=== PATIENT | female | born 1950 | race Caucasian/White ===

== ENCOUNTER 2023-11-07 14:45 | Outpatient (AMB) | payer MEDICARE, SELFPAY ==
[2023-11-07 14:55] VITALS: PULSE 72; O2SAT 94; BMI 45.6
--- NOTE | 2023-11-07 14:55 | A.OFFVIS_ITS ---
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 The patient is a 73-year-old woman presenting with cough. The cough has been chronic for her. Is been going on for more than several years. Typically nonproductive in nature. Moderate severity. At this point is been concerning to the patient and also her family. 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 She had been evaluated by ENT. They had recommended surgery going or semi-invasive interve ntions but she opted not to. She denies any choking episodes. In addition to that, the patient did undergo a chest x-ray back in 09/07/2023 which I personally reviewed without any acute disease. She also underwent pulmonary function studies at [facility]. It appears that she did have some saw tooth pattern the expiratory limb of the flow volume loop likely from redundant tissue or fasciculations from the vocal cord issue. At this point will try to further investigate the different etiologies for the cough. She does have multiple potential triggers. She has the vocal cord issue which could result in micro aspirations and pharyngeal laryngeal penetration. In addition to that she is a PET level. She has multiple pets in the house including multiple parakeets. She has had. He is most of her life. The patient also takes blood pressure medications including KAI inhibitor which may be also contributing to the cough as well. Clinical the patient although she has bothered by the cough does not want to take any medications for. Therefore will do additional testing at this time and then come up with a treatment plan afterwards. If the patient has any worsening symptoms she can not was call and we can prescribe her additional medications. [facility] Medical History (Updated 11/10/23 @ 22:29 by Sahil Donahue MD) Vocal cord palsy Chronic allergic rhinitis Allergies Chronic cough Social History (Updated 11/07/23 @ 15:04 by ANTONELLA Ruff) Patient Tobacco Use Status: Never used Tobacco Review of Systems Const Denies headache(s) Eyes Reports no additional complaints ENT Reports change in voice, Denies headache(s), Reports nasal congestion and Reports nasal discharge Card Denies chest pain Resp Denies chest congestion, Reports cough and Denies wheezing GI Denies no additional complaints Musc Reports no additional complaints Skin/Breast Denies rash Neuro Denies headache(s) Haile/Lymph Denies lymphadenopathy Aller/Immun Denies wheezing Physical Exam Vital Signs: Last Vital Signs Pulse 72 11/07/23 14:55 Pulse Ox 94 11/07/23 14:55 Oxygen Delivery Method Room Air 11/07/23 14:55 BMI result Body Mass Index 45.6 Const General: comfortable HEENT Head: Yes normocephalic Neck Neck: Yes supple Chest Chest palpation & inspection: normal inspection of the chest Resp Effort & Inspection: normal respiratory effort Auscultation: diminished lung sounds Cardio Heart sounds: S1 normal heart sound present and S2 normal heart sound present GI Palpation (GI): Soft to palpation Skin General skin exam: no rashes or lesions noted Extrem General: Yes no clubbing, cyanosis or edema Assessment & Plan Assessment & Plan (1) Chronic cough: Code(s): R05.3 - Chronic cough Category: Medical (2) Allergies: Code(s): T78.40XA - Allergy, unspecified, initial encounter Category: Medical Qualifiers: Encounter type: initial encounter Qualified Code(s): T78.40XA - Allergy, unspecified, initial encounter (3) Vocal cord palsy: Code(s): J38.00 - Paralysis of vocal cords and larynx, unspecified Category: Medical (4) Chronic allergic rhinitis: Code(s): J30.9 - Allergic rhinitis, unspecified Category: Medical Plan Bloodwork/allergy testing Overnight oximetry barium swallow consider changing KAI inhibitor to ARB F/U 2 months Orders: Orders Immunoglobulin E 11/07/23 J30.9 - Allergic rhinitis, unspecified, J38.00 - Paralysis of vocal cords and larynx, unspecified, R05.3 - Chronic cough, T78.40XA - Allergy, unspecified, initial encounter Resp Allergy Profile Region I 11/07/23 J30.9 - Allergic rhinitis, unspecified, J38.00 - Paralysis of vocal cords and larynx, unspecified, R05.3 - Chronic cough, R91.1 - Solitary pulmonary nodule, T78.40XA - Allergy, unspecified, initial encounter Immunoglobulins,IgG IgA IgM 06/20/24 J30.9 - Allergic rhinitis, unspecified, J38.00 - Paralysis of vocal cords and larynx, unspecified, R05.3 - Chronic cough, T78.40XA - Allergy, unspecified, initial encounter Complete Blood Count Auto Diff 11/07/23 J30.9 - Allergic rhinitis, unspecified, J38.00 - Paralysis of vocal cords and larynx, unspecified, R05.3 - Chronic cough, T78.40XA - Allergy, unspecified, initial encounter Overnight Pulse Oximetry 11/07/23 R05.3 - Chronic cough FL barium swallow 11/07/23 K21.9 - Gastro-esophageal reflux disease without esophagitis, R05.3 - Chronic cough Hypersensitive Pneumonitis Prf 11/07/23 R05.3 - Chronic cough, R91.8 - Other nonspecific abnormal finding of lung field, T78.40XA - Allergy, unspecified, initial encounter Coding Level of Care Code New Pt Level 4 (92359) Diagnoses Chronic cough R05.3 Allergy, initial encounter T78.40XA Encounter type: initial encounter Vocal cord palsy J38.00 Chronic allergic rhinitis J30.9 Time Spent (min) 40
== END 2023-11-07 15:33 | disposition home or self-care (01) ==
PROVIDERS: PCP Internal Medicine; Visit Provider Hospitalist
DX: R05.3 Chronic cough (principal); T78.40XA Allergy, unspecified, initial encounter; J38.00 Paralysis of vocal cords and larynx, unspecified; J30.9 Allergic rhinitis, unspecified
CPT/HCPCS: 99204

== ENCOUNTER → 2023-11-07 14:45 | Outpatient (BNVA) | payer MEDICARE, SELFPAY | PROVIDERS: PCP Internal Medicine; Visit Provider Hospitalist | DX: R05.3 Chronic cough (principal); J38.00 Paralysis of vocal cords and larynx, unspecified; J30.9 Allergic rhinitis, unspecified; T78.40XA Allergy, unspecified, initial encounter | CPT/HCPCS: 99202 ==

== ENCOUNTER 2024-01-23 07:49 | Outpatient (REF) | payer MEDICARE, SELFPAY ==
--- NOTE | ~2024-01-23 | FL_ITS ---
EXAMINATION: XR FLUOROSCOPY UPPER GI WITH AIR CLINICAL INFORMATION: Reflux . Cough. COMPARISON: None TECHNIQUE: Fluoroscopic air contrast upper GI examination was performed utilizing standard techniques with thin and thick barium and effervescent granules. Numerous spot images were obtained. FINDINGS: Lateral cine images of the oropharynx and hypopharynx demonstrate normal swallow mechanism with normal epiglottic inversion and soft palate elevation. No tracheal penetration, glottic or subglottic aspiration identified. No nasopharyngeal reflux present. A tiny Zenker's diverticulum is present.. There is mild cricopharyngeal achalasia. Dual and single contrast images of the esophagus demonstrate a mildly patulous esophagus. No evidence of stricture, mass, or ulcerations identified. Esophageal peristalsis is moderately disorganized. A small type I hiatal hernia is present. A moderate amount gastroesophageal reflux is seen up to the thoracic inlet. Dual contrast and single contrast images of the stomach demonstrated a normal contour. Evaluation of the gastric mucosa is limited due to poor coating of the stomach. No obvious masses or ulcerations are seen. Contrast freely passed into the gastric antrum and duodenal bulb without delay. Single and air-contrast images of the duodenal bulb demonstrate no abnormality. The duodenal sweep has a normal appearance, course, and mucosal fold appearance. The imaged proximal jejunum has a normal fold pattern and caliber. FLUOROSCOPY TIME: 4 minutes 5 seconds Number of Spot Images: 8 Number of Cine: 14 DOSE AREA PRODUCT: 3224 uGy-m2 (microgray-meter squared) FL/FL barium swallow with air IMPRESSION: 1. Tiny Zenker's diverticulum. 2. Mild cricopharyngeal achalasia. 3. Mildly patulous esophagus with moderately disorganized peristalsis consistent with esophageal motility. 4. Small type I hiatal hernia with moderate gastroesophageal reflux. 5. Limited evaluation of the gastric mucosa due to poor coating of the stomach. This procedure was performed by Tyron Narvaez PA-C, and supervised by Dr. Ellison Electronically signed by: Brannon Ellison MD 01/23/2024 04:16 PM EDT
== END 2024-01-23 07:50 | disposition home or self-care (01) ==
LOC: HO.XRAY 07:49
PROVIDERS: PCP Internal Medicine; Visit Provider Hospitalist
DX: K21.9 Gastro-esophageal reflux disease without esophagitis (principal); R05.3 Chronic cough
CPT/HCPCS: 74221

== ENCOUNTER → 2024-01-23 07:50 | Outpatient (BNV) | payer MEDICARE, SELFPAY | PROVIDERS: PCP Internal Medicine; Visit Provider Radiology Diagnostic Radiology | DX: K21.9 Gastro-esophageal reflux disease without esophagitis (principal) | CPT/HCPCS: 74246 ==

== ENCOUNTER 2024-01-28 09:32 | Outpatient (REF) | payer MEDICARE, SELFPAY ==
[2024-01-28 10:43] LABS: MANUAL DIFF FLAG NO
[2024-01-28 10:54] LABS: Basophils Percent Auto 0.4 % (0-2); Eosinophils Absolute Auto 0.2 X10*3/uL (0.0-0.4); Eosinophils Percent Auto 2.6 % (0-4); Hematocrit 39.6 % (37.0-47.0); Hemoglobin 13.2 g/dl (12.0-16.0); Imm Gran Abs Auto 0.03 X10*3/uL (0.00-0.03); Imm Gran Pct Auto 0.4 % (0.0-0.4); Lymphocytes Absolute Auto 2.1 X10*3/uL (1.2-4.9); Lymphocytes Percent Auto 27.1 % (20-40); Mean Corpuscular HGB Conc 33.3 g/dl (31.0-35.0); Mean Corpuscular Hemoglobin 31.2 pg (27.0-33.0); Mean Corpuscular Volume 93.6 fL (80.0-98.0); Mean Platelet Volume 10.2 fL (9.4-12.3); Monocytes Absolute Auto 0.4 X10*3/uL (0.1-1.2); Monocytes Percent Auto 5.7 % (2-11); Neutrophils Absolute Auto 4.9 x10*3/uL (2.0-8.3); Neutrophils Percent Auto 63.8 % (45-73); Platelet Count 223 X10*3/uL (160-400); Red Blood Count 4.23 X10*6/uL (4.20-5.50); Red Cell Distribution Width 14.4 % (11.0-16.0); White Blood Count 7.7 X10*3/uL (4.8-10.8)
[2024-01-29 08:53] LABS: IgA 141 mg/dL (70-320); IgG 986 mg/dL (600-1540); IgM 51 mg/dL (50-300)
[2024-01-30 22:19] LABS: Class Alternaria alternata 0; Class Aspergillus fumigatus 0; Class Bermuda Grass 0; Class Birch 0; Class Cat Dander 0; Class Cladosporium herbarum 0; Class Cockroach 0; Class Common Ragweed 0; Class Cottonwood 0; Class Derm. pterony 0; Class Dermatophagoides farinae 0; Class Dog Dander 0; Class Elm 0; Class Maple Box Elder 0; Class Mountain Cedar 0; Class Mouse Urine Protein 0; Class Mugwort 0; Class Oak 0; Class Penicillium crysogenum 0; Class Rough Pigweed 0; Class Sheep Sorrel 0; Class Sycamore 0; Class Timothy Grass 0; Class Walnut Tree 0; Class White Ash 0; Class White Mulberry 0; D001 IgE D pteronyssinus <0.10 kU/L; D002 - IgE D farinae <0.10 kU/L; E001 - IgE Cat Dander <0.10 kU/L; E005 - IgE Dog Dander <0.10 kU/L; E072-IgE Mouse Urine <0.10 kU/L; G002 IgE Bermuda Grass <0.10 kU/L; G006 - IgE Timothy Grass <0.10 kU/L; I006-IgE Cockroach, German <0.10 kU/L; Immunoglobulin E 36 kU/L (<OR=114); M001 IgE Penicillium chrysogen <0.10 kU/L; M002 - IgE Cladosporium herbar <0.10 kU/L; M003 - IgE Aspergillus fumigat <0.10 kU/L; M006 - IgE Alternaria alternat <0.10 kU/L; T001 IgE Maple/Box Elder <0.10 kU/L; T003 IgE Common Silver Birch <0.10 kU/L; T006 - IgE Cedar, Mountain <0.10 kU/L; T007 - IgE Oak, White <0.10 kU/L; T008 IgE Elm, American <0.10 kU/L; T010 - IgE Walnut <0.10 kU/L; T011 - IgE Maple Leaf Sycamore <0.10 kU/L; T014 - IgE Cottonwood <0.10 kU/L; T015 - IgE Ash, White <0.10 kU/L; T070 - IgE White Mulberry <0.10 kU/L; W001 - IgE Ragweed, Short <0.10 kU/L; W006 - IgE Mugwort <0.10 kU/L; W014 IgE Pigweed, Common <0.10 kU/L; W018 IgE Sheep Sorrel <0.10 kU/L
[2024-02-08 16:18] LABS: Asperg fumigatus Precip Abs NEGATIVE (NEGATIVE); Micropoly faeni Abs NEGATIVE (NEGATIVE); Pigeon serum Abs NEGATIVE (NEGATIVE); Saccharo pora viridis Abs NEGATIVE (NEGATIVE); Thermo candidus Abs NEGATIVE (NEGATIVE); Thermoa vulgaris #1 NEGATIVE (NEGATIVE)
== END 2024-01-28 09:33 | disposition home or self-care (01) ==
LOC: HO.LAB 09:32
PROVIDERS: PCP Internal Medicine; Visit Provider Hospitalist
DX: T78.40XA Allergy, unspecified, initial encounter (principal); R05.3 Chronic cough; J30.9 Allergic rhinitis, unspecified; J38.00 Paralysis of vocal cords and larynx, unspecified; K21.9 Gastro-esophageal reflux disease without esophagitis
CPT/HCPCS: 36415; 82784; 82785; 85025; 86003; 86331; 86606; 86609; 99212

== ENCOUNTER 2024-01-28 09:32 | Outpatient (AMB) | payer MEDICARE, SELFPAY ==
[2024-01-28 09:40] VITALS: PULSE 78; O2SAT 93; BMI 45.9
--- NOTE | 2024-01-28 09:40 | MHC.OFFVIS ---
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 The cough has been chronic for her. Is been going on for more than several years. Typically nonproductive in nature. Moderate severity. At this point is been concerning to the patient and also her family. 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 She had been evaluated by ENT. They had recommended surgery going or semi-invasive interventions but she opted not to. She denies any choking episodes. In addition to that, the patient did undergo a chest x-ray back in 09/07/2023 which I personally reviewed without any acute disease. She also underwent pulmonary function studies at [facility]. It appears that she did have some saw tooth pattern the expiratory limb of the flow volume loop likely from redundant tissue or fasciculations from the vocal cord issue. At this point will try to further investigate the different etiologies for the cough. She does have multiple potential triggers. She has the vocal cord issue which could result in micro aspirations and pharyngeal laryngeal penetration. In addition to that she is a PET level. She has multiple pets in the house including multiple parakeets. She has had. He is most of her life. The patient also takes blood pressure medications including KAI inhibitor which may be also contributing to the cough as well. Clinical the patient although she has bothered by the cough does not want to take any medications for. Therefore will do additional testing at this time and then come up with a treatment plan afterwards. If the patient has any worsening symptoms she can not was call and we can prescribe her additional medications. 01/28/2024 the patient is here for a pulmonary follow-up visit. Overall she is doing better. Her cough seems to be better. She still has intermittent coughing but usually nonproductive in no significant. She still continues a an KAI inhibitor. Although she has been on an KAI-inhibitor for many years and she has not seen any significant problems with it prior. We did look at her barium swallow. She has a very abnormal study with a small Zenker's diverticulum significant mobility disorder and also a small hiatal hernia with moderate reflux disease. Therefore, explained to her that chronic cough from underlying reflux and non acid reflux could be playing a big role in her. She also is overweight which could also resulting worsening symptoms. The patient also had an overnight oximetry. She had significant hypoxia. Therefore she was started on nocturnal oxygen. The patient does have history of snoring headaches. The patient does benefit from an in-lab sleep study. She will consider it although she is not sure if she can wear CPAP at this time. Therefore I did recommend she continue the oxygen. [facility] Medical History (Updated 01/28/24 @ 21:16 by Sahil Donahue MD) Hiatal hernia GERD (gastroesophageal reflux disease) Vocal cord palsy Chronic allergic rhinitis Allergies Chronic cough Social History (Updated 11/07/23 @ 15:04 by ANTONELLA Ruff) Patient Tobacco Use Status: Never used Tobacco Review of Systems Const Denies headache(s) Eyes Reports no additional complaints ENT Reports change in voice, Denies headache(s), Reports nasal congestion and Reports nasal discharge Card Denies chest pain Resp Denies chest congestion, Reports cough and Denies wheezing GI Reports dyspepsia and Reports heartburn Musc Reports no additional complaints Skin/Breast Denies rash Neuro Denies headache(s) Haile/Lymph Denies lymphadenopathy Aller/Immun Denies wheezing Physical Exam Vital Signs: Last Vital Signs Pulse 78 01/28/24 09:40 Pulse Ox 93 01/28/24 09:40 Oxygen Delivery Method Room Air 01/28/24 09:40 BMI result Body Mass Index 45.9 Const General: comfortable HEENT Head: Yes normocephalic Neck Neck: Yes supple Chest Chest palpation & inspection: normal inspection of the chest Resp Effort & Inspection: normal respiratory effort Auscultation: diminished lung sounds Cardio Heart sounds: S1 normal heart sound present and S2 normal heart sound present GI Palpation (GI): Soft to palpation Skin General skin exam: no rashes or lesions noted Extrem General: Yes no clubbing, cyanosis or edema Assessment & Plan Assessment & Plan (1) Chronic cough: Code(s): R05.3 - Chronic cough Category: Medical (2) Allergies: Code(s): T78.40XA - Allergy, unspecified, initial encounter Category: Medical Qualifiers: Encounter type: initial encounter Qualified Code(s): T78.40XA - Allergy, unspecified, initial encounter (3) Vocal cord palsy: Code(s): J38.00 - Paralysis of vocal cords and larynx, unspecified Category: Medical (4) Chronic allergic rhinitis: Code(s): J30.9 - Allergic rhinitis, unspecified Category: Medical (5) GERD (gastroesophageal reflux disease): Code(s): K21.9 - Gastro-esophageal reflux disease without esophagitis Category: Medical Qualifiers: Esophagitis presence: without esophagitis Qualified Code(s): K21.9 - Gastro-esophageal reflux disease without esophagitis Plan reflux diet GI referral Bloodwork/allergy testing consider changing KAI inhibitor to ARB F/U 6 months Orders: Referrals Gastroenterology Referral K21.9 - Gastro-esophageal reflux disease without esophagitis, K44.9 - Diaphragmatic hernia without obstruction or gangrene Coding Level of Care Code Est Pt Level 4 (64849) Diagnoses Chronic cough R05.3 Allergy, initial encounter T78.40XA Encounter type: initial encounter Vocal cord palsy J38.00 Chronic allergic rhinitis J30.9 Gastroesophageal reflux disease without esophagitis K21.9 Esophagitis presence: without esophagitis Time Spent (min) 16
== END 2024-01-28 10:03 | disposition home or self-care (01) ==
PROVIDERS: PCP Internal Medicine; Visit Provider Hospitalist
DX: R05.3 Chronic cough (principal); T78.40XA Allergy, unspecified, initial encounter; J38.00 Paralysis of vocal cords and larynx, unspecified; J30.9 Allergic rhinitis, unspecified; K21.9 Gastro-esophageal reflux disease without esophagitis
CPT/HCPCS: 99214

== ENCOUNTER 2024-06-05 09:09 | Outpatient (AMB) | payer MEDICARE, SELFPAY ==
[2024-06-05 09:19] VITALS: BP 140/66; PULSE 64; O2SAT 98; BMI 45.5
--- NOTE | 2024-06-05 09:19 | A.OFFVIS_ITS ---
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 Prior hx of colo/egd? PCP notes, [place], and CT notes req 2016 [place]. Pt cannot recall hx of egd. Concerns/Questions? Worsening cough. Hx of reflux. Pt was advised to follow up with a GI specialist based on results of imaging. Allergies No Known Allergies Allergy (Verified 06/05/24 09:19) HPI HPI Gastroesophageal reflux disease (GERD): Details: Before year old female with past medical history of diabetes, on insulin pump, chronic allergic rhinitis, chronic cough, vocal cord palsy, hypothyroidism, hypertension, hyperlipidemia is here today for initial consultation. 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 Patient is confused why she is here. Discussed with her results from her barium swallow that showed disorganized peristalses of esophagus, hiatal hernia and moderate reflux. Patient is not on any PPI. Patient is not in favor of taking this medication, afraid that she might get a stomach cancer. Patient reports that her friend was on Zantac for very long time and she end up with stomach cancer. Long discussion with patient about PPI's versus Zantac. Patient reports that she had colonoscopy in 2017, however she does not recall ever having endoscopy. Patient denies having any symptoms of acid reflux. Patient reports her symptoms are cough which she has had for very long time. Patient however is on lisinopril and this could be the culprit. Patient should follow-up with her PCP in regards to that. Discussed with patient that also reflux could cause her to have a dry cough. Again as mentioned above Reflux identified on barium swallow. Patient also has very small grade 1 hiatal hernia. Patient is diabetic and is on insulin pump. Patient also has [employer] blood sugar monitoring device that communicates with her pump and when she has high blood sugar it delivers additional insulin and when her blood sugar is low it turns the pump off. Patient reports that she is moving her bowels well without any issues. No issues with anesthesia in the past. Hypoxia during night, diagnosed with sleep apnea unable to wear machine and patient is using oxygen during the night. Patient denies any dyspepsia, dysphagia or odynophagia. 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 [facility] Medical History (Updated 06/05/24 @ 19:13 by Ivis French, [facility] [place]) Diabetes mellitus Hyperlipidemia HTN (hypertension) Hiatal hernia GERD (gastroesophageal reflux disease) Vocal cord palsy Chronic allergic rhinitis Allergies Chronic cough Social History Patient Tobacco Use Status: Never used Tobacco Review of Systems Const Denies weight gain and Denies weight loss ENT Reports no additional complaints, Denies dysphagia and Denies odynophagia Card Reports no additional complaints Resp Reports cough (Dry ) GI Denies abdominal pain, Denies belching, Denies melena, Denies bloating, Denies change in bowel habits, Denies dysphagia, Denies excessive flatus, Denies dyspepsia, Denies heartburn, Denies diarrhea, Denies loose stools, Denies nausea, Denies odynophagia and Denies vomiting Reports no additional complaints Musc Reports no additional complaints Neuro Reports no additional complaints Psych Reports no additional complaints Endo Reports no additional complaints Physical Exam Vital Signs: Last Vital Signs Pulse 64 06/05/24 09:19 BP 140/66 H 06/05/24 09:19 Pulse Ox 98 06/05/24 09:19 Oxygen Delivery Method Room Air 06/05/24 09:19 BMI result Body Mass Index 45.5 Const General: healthy appearing and no acute distress Nutritional Appearance: well nourished and obese Resp Effort & Inspection: normal respiratory effort, able to speak in complete sentences, no tracheal deviation and symmetric chest movement Auscultation: clear to auscultation bilaterally Cardio Rate: regular rate GI Inspection: Yes normal to inspection and No distended Palpation (GI): Soft to palpation, not firm, nontender and No hepatosplenomegaly present Auscultation: normal bowel sounds General: Yes no CVA tenderness Back/Spine/Pelvis Back: no CVA tenderness Skin General skin exam: elasticity normal, turgor normal and dry skin Psych Appearance: grossly normal Mental Status: mental status grossly normal Results Reviewed Results Reviewed: BARIUM SWALLOW IMPRESSION: 1. Tiny Zenker's diverticulum. 2. Mild cricopharyngeal achalasia. 3. Mildly patulous esophagus with moderately disorganized peristalsis consistent with esophageal motility. 4. Small type I hiatal hernia with moderate gastroesophageal reflux. 5. Limited evaluation of the gastric mucosa due to poor coating of the stomach. Assessment & Plan Assessment & Plan (1) Hiatal hernia: Code(s): K44.9 - Diaphragmatic hernia without obstruction or gangrene Category: Medical (2) GERD (gastroesophageal reflux disease): Code(s): K21.9 - Gastro-esophageal reflux disease without esophagitis Category: Medical Qualifiers: Esophagitis presence: without esophagitis Qualified Code(s): K21.9 - Gastro-esophageal reflux disease without esophagitis (3) Chronic cough: Code(s): R05.3 - Chronic cough Category: Medical Plan As mentioned above in HPI patient had abnormal barium swallow. Patient will be sent for endoscopy. Will start her on pantoprazole. Long discussion about patient's concern for this treatment. Patient will be placed on pantoprazole for about 3 months to try. She will call us if she will have any concerns. Discussed with patient avoiding dietary triggers and late night snacking. Staying upright for minimum 3 hours after meals discussed with patient. Patient reports that her blood sugars have been good. History of sleep apnea, on oxygen at night. Insulin pump with constant monitoring device that communicates and stops or delivers the insulin depending on her levels. Message sent to surgical schedulers to book upper endoscopy for patient. Patient is agreeable to this plan and verbalizes understanding of instructions. She was given the opportunity to ask questions and all questions answered. Thank you for allowing me to participate in her care Medications: New pantoprazole take one tablet half an hour before breakfast 40 mg PO DAILY 30 tabs 2RF K21.9 - Gastro-esophageal reflux disease without esophagitis Coding Level of Care Code New Pt Level 4 (28457) Diagnoses Hiatal hernia K44.9 Gastroesophageal reflux disease without esophagitis K21.9 Esophagitis presence: without esophagitis Chronic cough R05.3 Time Spent (min) 45 Comment 35 minutes spent with patient and additional 10 minutes spent reviewing her records
--- OUTSIDE RECORDS SUMMARY | 2024-06-05 09:49 | XMS_ITS | Continuity of Care Document ---
Author Organization [facility] [address] [place] [address] Phone [phone] Care Team Providers Care Gas Distribution And Emergency Clerk Name Role Phone Ravin Moyre M.D. Care Team Information Recei mihaela [phone] Problems Active Problems Provider Date Type 1 diabetes mellitus Meagan Ramos M.D. Onset: 12/14/2021 Primary hypothyroidism Esa Gerardo Onset: 12/14/2021 Essential hypertension Esa Gerardo Onset: 12/14/2021 Dyslipidemia Maegan Ramos M.D. Ons et: 12/14/2021 Adhesive capsulitis of left shoulder Maegan Vu M.D. Onset: 12/14/2021 History of polyp of colon Maegan Ramos M.D. Onset: 12/14/2021 Obstructive sleep apnea syndrome Maegan French M.D. Onset: 12/14/2021 Vocal cord paralysis Bobbi Gerardo Onset: 12/14/2021 Carcinoma of urinary bladder , superficial Maegan Ramos M.D. Onset: 12/14/2021 Nonproliferative retinopathy due to diabetes mellitus Maegan Ramos M.D. Onset: 12/14/2021 Kidney stone Maegan Ramos M.D. Ons et: 12/14/2021 Chronic kidney disease stage 3 Maegan gonzales M.D. Onset: 12/14/2021 Gout Maegan Ramos M.D. Ons et: 12/14/2021 Hyperparathyroidism Maegan Ramos M.D. Onset: 12/14/2021 Obesity Maegan Ramos M.D. 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 05/26/2024 Z96.41 Z79.4 Gvoke Hypopen 2-Kdcz2rl/0.2ML Solution Auto-Inject use as directed for low blood sugar reactions .6ml Neela Ramos M.D. 04/28/2024 Z96.41 Z79.4 Accu-Chek GuideStrips use and discard 1 test strip 3 times daily 300units Neela Ramos M.D. 03/01/2023 Freestyle Radhika 2/[place]/Flash Glucose Monitoring Voumle4Jnmdro Device use as directed with sensors dx Alban 1uncarrillo Ramos M.D. 08/02/2022 Freestyle Radhika 2/Sensor/Flash Glucose Monitoring Erwtti3Bkcdfy Misc 1 sensor to skin every fourteen days as directed dx e10.21 6units Maegan Ramos M.D. 08/02/2022 Cjpfgimzrca306fo Tablets 1 qd Unknown Gxgvpazrug33zd Tablets 1 by mouth every day Unknown Vitamin W536181rmq Tablets ER 1 by mouth every day Maegan Ramos M.D. Vitamin G300ndj (2000 Ut) Capsules 1 by mouth every day Maegan Ramos M.D. Aspirin Adult Low Bsst74bl Tablets DR 1 by mouth every day Maegan Ramos M.D. Oneidazfo044cvq Tablets Take 1 Tablet By Mouth Once Daily Except Take 1/2 Tab On Sundays Ravin Moyer M.D. Atorvastatin Ptzslcm88op Tablets Take 1 Tablet By Mouth Every Day Ravin Moyer M.D. Rvnjuedvnp61wl Tablets Take One Tablet By Mouth Twice Daily Ravin Moyer M.D. Hydrochlorothiazide2 5mg Tablets Take 1/2 tab daily Ravin Moyer M.D. Potassium Citrate SP11Ycj (1080 mg) Tablets ER 1 bid Unknown Emmepqpye25bh Tablets Take 1 Tablet By Mouth Every Day Ravin Moyer M.D. History Medications Gvoke Hypopen 1-Djht5mu/0.2ML Solution Auto-Inject use as directed for low blood sugar reactions .200ml Maegan Ramos M.D. 01/10/2024 - 04/28/2024 Jckgf344Megs/ML Solution 110 units subcutaneously daily via insulin pump 100ml E10.2 1 Maegan Ramos M.D. 08/01/2023 - 05/26/2024 Vital Signs Date Vital Result Comment 04/15/2024 9:29am BP Systolic 114 mmHg BP Diastolic 66 mmHg Results Test Acquired Date Facility Test Result H/L Range Note Laboratory test finding 04/15/2024 Inhouse Glucose Fingerstick 141 Hemoglobin A1c 7.5% Laboratory test finding 01/10/2024 Inhouse Glucose Fingerstick 127 Hemoglobin A1c 7.7% Albumin/Creati nine Ratio, Random Urine 10/11/2023 [facility] Creatinine, Urine 91.8 mg/dL Not Estab. Albumin, Urine 10.2 ug/mL Not Estab. Alb/Creat Ratio 11 mg/gcreat 0-2 9 1 Laboratory test finding 10/11/2023 Inhouse Glucose Fingerstick 152 Hemoglobin A1c 7.6% Laboratory test finding 09/02/2023 [facility] TSH reflex to T4F TNP uIU/mL 2 Request Problem TNP 3 Laboratory test finding 07/12/2023 Inhouse Glucose Fingerstick 195 Hemoglobin A1c 7.3% Laboratory test finding 04/25/2023 Inhouse Glucose Fingerstick 205 Laboratory test finding 01/07/2023 Inhouse Glucose Fingerstick 214 Hemoglobin A1c 7.4% Laboratory test finding 11/29/2022 [facility] Glucose Duplicate order <SEE NOTE> 4 C-Peptide <0.1 Low 5 Laboratory test finding 11/29/2022 [facility] Glucose 80 mg/dL (70-99) TSH With Reflex To FT4 1.91 uIU/mL (0.4-4.2) Laboratory test finding 10/12/2022 Inhouse Glucose Fingerstick 189 Laboratory test finding 07/24/2022 [facility] TSH With Reflex To FT4 <pending> Laboratory test finding 07/24/2022 Inhouse Glucose Fingerstick 149 Hemoglobin A1c 7.1% Laboratory test finding 12/14/2021 Inhouse Glucose Fingerstick 125 Hemoglobin A1c 7.5 1 Normal: 0 - 29 Moderately increased: 30 - 300 Severely increased: >300 2 [facility] was unable t o collect sufficient specimen to perform the following test(s), and is providing the patient with re-collection instructions. 3 [facility] was unable t o collect sufficient specimen to perform the following test(s), and is providing the patient with re-collection instructions. TEST: 290609 TSH reflex to T4F 4 Duplicate order canc elled via interface 5 Reference range: 1.1 to 4.4 Unit: ng/mL (NOTE) C-Peptide reference interval is for fasting patients. Test performed by [facility], [address] [place] [address] Procedures Date Code Description Status 04/15/2024 60435 Glucose Monitoring Interpeta tion And Report Completed 01/10/2024 99907 Glucose Monitoring Interpeta tion And Report Completed 10/11/2023 54041 Glucose Monitoring Interpeta tion And Report Completed 07/12/2023 08853 Glucose Monitoring Interpeta tion And Report Completed 04/25/2023 38017 Glucose Monitoring Interpeta tion And Report Completed 03/27/2023 09848 Glucose Monitoring Interpeta tion And Report Completed 01/07/2023 74614 Glucose Monitoring Interpeta tion And Report Completed 10/12/2022 22075 Glucose Monitoring Interpeta tion And Report Completed 07/24/2022 35802 Glucose Monitoring Interpeta tion And Report Completed Medical Devices Description No Information Available Encounters Type Date Location Provider Dx Diagnosis Office Visit 04/15/2024 8:30a Main Office Maegan Ramos M.D. 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 04/15/2024 N18.31 Chronic kidney disease, stag e 3a Maegan Ramos M.D. 04/15/2024 I10 Essential (primary) hyperten jazz Maegan Ramos M.D. 04/15/2024 E03.9 Hypothyroidism, unspecified Maegan Ramos M.D. 04/15/2024 E10.3293 Type 1 diabetes mellitus with mild nonproliferative diabetic retinopathy without macular edema, bilateral Maegan Ramos M.D. 04/15/2024 Z96.41 Presence of insu sharon pump (external) (internal) Maegan Ramos M.D. 04/15/2024 Z79.4 residential (current) use of i nsulin Maegan Ramos M.D. Plan of Treatment Future Appointment(s):* 10/15/2024 8:45 am - Maegan Ramos M.D. at Main Office * 07/13/2024 8:15 am - Maegan Ramos M.D. 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
== END 2024-06-05 11:56 | disposition home or self-care (01) ==
PROVIDERS: PCP Internal Medicine; Visit Provider Nurse Practitioner Family
DX: K44.9 Diaphragmatic hernia without obstruction or gangrene (principal); K21.9 Gastro-esophageal reflux disease without esophagitis; R05.3 Chronic cough
CPT/HCPCS: 99204

== ENCOUNTER → 2024-06-05 09:09 | Outpatient (BNVA) | payer MEDICARE, SELFPAY | PROVIDERS: PCP Internal Medicine; Visit Provider Nurse Practitioner Family | DX: K44.9 Diaphragmatic hernia without obstruction or gangrene (principal); K21.9 Gastro-esophageal reflux disease without esophagitis; R05.3 Chronic cough | CPT/HCPCS: 99202 ==

== ENCOUNTER 2024-07-29 09:25 | Outpatient (AMB) | payer MEDICARE, SELFPAY ==
[2024-07-29 09:30] VITALS: BP 128/62; PULSE 67; O2SAT 97; BMI 45.8
--- NOTE | 2024-07-29 09:30 | MHC.OFFVIS ---
Vital Signs 07/29/24 09:30 Height 5 ft 8 in Weight 300 lb 14.896 oz BMI 45.8 BP 128/62 Blood Pressure Location Lt brachial Position Sitting Pulse 67 Pulse Source Pulse Oximeter Pulse Oximetry (%) 97 Oxygen Delivery Method Room Air Intake Visit Reasons: Cough Allergies No Known Allergies Allergy (Verified 07/29/24 09:35) HPI Comments Details: The patient is a 73-year-old woman presenting with cough. The cough has been chronic for her. Is been going on for more than several years. Typically nonproductive in nature. Moderate severity. At this point is been concerning to the patient and also her family. 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 She had been evaluated by ENT. They had recommended surgery going or semi-invasive interventions but she opted not to. She denies any choking episodes. In addition to that, the patient did undergo a chest x-ray back in 09/07/2023 which I personally reviewed without any acute disease. She also underwent pulmonary function studies at [facility]. It appears that she did have some saw tooth pattern the expiratory limb of the flow volume loop likely from redundant tissue or fasciculations from the vocal cord issue. At this point will try to further investigate the different etiologies for the cough. She does have multiple potential triggers. She has the vocal cord issue which could result in micro aspirations and pharyngeal laryngeal penetration. In addition to that she is a PET level. She has multiple pets in the house including multiple parakeets. She has had. He is most of her life. The patient also takes blood pressure medications including KAI inhibitor which may be also contributing to the cough as well. Clinical the patient although she has bothered by the cough does not want to take any medications for. Therefore will do additional testing at this time and then come up with a treatment plan afterwards. If the patient has any worsening symptoms she can not was call and we can prescribe her additional medications. 01/28/2024 the patient is here for a pulmonary follow-up visit. Overall she is doing better. Her cough seems to be better. She still has intermittent coughing but usually nonproductive in no significant. She still continues a an KAI inhibitor. Although she has been on an KAI-inhibitor for many years and she has not seen any significant problems with it prior. We did look at her barium swallow. She has a very abnormal study with a small Zenker's diverticulum significant mobility disorder and also a small hiatal hernia with moderate reflux disease. Therefore, explained to her that chronic cough from underlying reflux and non acid reflux could be playing a big role in her. She also is overweight which could also resulting worsening symptoms. The patient also had an overnight oximetry. She had significant hypoxia. Therefore she was started on nocturnal oxygen. The patient does have history of snoring headaches. The patient does benefit from an in-lab sleep study. She will consider it although she is not sure if she can wear CPAP at this time. Therefore I did recommend she continue the oxygen. 07/29/2024 the patient is here for pulmonary follow-up visit. Overall she is doing good. Her cough is better. She still has some dyspnea symptoms and chronic cough. She does have an abnormal barium swallow. She needs the undergo a endoscopy. Is been scheduled but the patient was on sure about the endoscopy with her underlying vocal cord paralysis. I did reassure her that it should not be an issue. As long as the anesthesiologist is aware that is okay to proceed. She should avoid endotracheal intubation then potentially further irritate that vocal cord. We did talk about the reflux diet. She does have some reservations. But we talked about the importance of avoiding too much reflux disease at this time. Therefore she will continue with current therapy. She should be sleeping elevated and will follow-up in the fall. If she has any issues prior to that she will call for an earlier assessment. [facility] Medical History (Updated 06/05/24 @ 19:13 by JOSE Del Valle-) Diabetes mellitus Hyperlipidemia HTN (hypertension) Hiatal hernia GERD (gastroesophageal reflux disease) Vocal cord palsy Chronic allergic rhinitis Allergies Chronic cough Social History Patient Tobacco Use Status: Never used Tobacco Review of Systems Const Denies headache(s) Eyes Reports no additional complaints ENT Reports change in voice, Denies headache(s), Reports nasal congestion and Reports nasal discharge Card Denies chest pain Resp Denies chest congestion, Reports cough and Denies wheezing GI Reports dyspepsia and Reports heartburn Musc Reports no additional complaints Skin/Breast Denies rash Neuro Denies headache(s) Haile/Lymph Denies lymphadenopathy Aller/Immun Denies wheezing Physical Exam Vital Signs: Last Vital Signs Pulse 67 07/29/24 09:30 BP 128/62 07/29/24 09:30 Pulse Ox 97 07/29/24 09:30 Oxygen Delivery Method Room Air 07/29/24 09:30 BMI result Body Mass Index 45.8 Const General: comfortable HEENT Head: Yes normocephalic Neck Neck: Yes supple Chest Chest palpation & inspection: normal inspection of the chest Resp Effort & Inspection: normal respiratory effort Auscultation: diminished lung sounds Cardio Heart sounds: S1 normal heart sound present and S2 normal heart sound present GI Palpation (GI): Soft to palpation Skin General skin exam: no rashes or lesions noted Extrem General: Yes no clubbing, cyanosis or edema Assessment & Plan Assessment & Plan (1) Chronic cough: Code(s): R05.3 - Chronic cough Category: Medical (2) Allergies: Code(s): T78.40XA - Allergy, unspecified, initial encounter Category: Medical Qualifiers: Encounter type: initial encounter Qualified Code(s): T78.40XA - Allergy, unspecified, initial encounter (3) Vocal cord palsy: Code(s): J38.00 - Paralysis of vocal cords and larynx, unspecified Category: Medical (4) Chronic allergic rhinitis: Code(s): J30.9 - Allergic rhinitis, unspecified Category: Medical (5) GERD (gastroesophageal reflux disease): Code(s): K21.9 - Gastro-esophageal reflux disease without esophagitis Category: Medical Qualifiers: Esophagitis presence: without esophagitis Qualified Code(s): K21.9 - Gastro-esophageal reflux disease without esophagitis Plan Awaiting EGD Bloodwork/allergy testing normal reflux diet sleep elevated F/U 6 months Coding Level of Care Code Est Pt Level 4 (05431) Diagnoses Chronic cough R05.3 Allergy, initial encounter T78.40XA Encounter type: initial encounter Vocal cord palsy J38.00 Chronic allergic rhinitis J30.9 Gastroesophageal reflux disease without esophagitis K21.9 Esophagitis presence: without esophagitis Time Spent (min) 17
--- OUTSIDE RECORDS SUMMARY | 2024-07-29 10:15 | XMS_ITS | Clinical Summary ---
Author Organization [facility] Address [address] [address] Phone Care Team Providers Care Production Machine Shop Supervisor Name Role Phone Ravin Moyer MD Primary Care Provider [phone] Allergies Active Allergy Reactions Criticality Noted Date Comments Bee Pollen 10/31/2020 Medications aspirin (ST LIS) 81 MG EC tablet Take 1 tablet by mouth 1 (one) time each day Active atorvastatin (LIPITOR) 80 MG tablet Take 1 tablet by mouth 1 (one) time each day Active carvedilol (COREG) 25 MG tablet Take 1 tablet by mouth 1 (one) time each day Active EPINEPHrine (EPIPEN) 0.3 MG/0.3ML injection syringe if needed Active glucagon 1 MG injection if needed Active hydroCHLOROthia zide (HYDRODIURIL) 25 MG tablet Take 12.5 mg by mouth 1 (one) time each day Active insulin aspart (NovoLOG) 100 UNIT/ML injection Novolog U-100 Insulin aspart 100 unit/mL subcutaneous solution Active levothyroxine (SYNTHROID, LEVOTHROID) 200 MCG tablet Take 1 tablet by mouth 1 (one) time each day Active ezetimibe (ZETIA) 10 MG tablet Take 10 mg by mouth 1 (one) time each day 1 Active potassium citrate 10 MEQ (1080 MG) CR tablet Take 1 tablet (10 mEq total) by mouth in the morning and 1 tablet (10 mEq total) in the evening. Take with meals. Do not crush, chew, or split. . 180 tablet 3 3 Active lisinopril 20 MG tablet Take 20 mg by mouth 1 (one) time each day Active allopurinol (ZYLOPRIM) 100 MG tablet Take 1 tablet (100 mg total) by mouth 1 (one) time each day 90 tablet 3 4 Active Active Problems Problem Noted Date Diagnosed Date Acute nontraumatic kidney injury 10/31/2020 Stage 3b chronic kidney disease 10/31/2020 Hypertensive renal disease 10/31/2020 Renal stone 10/31/2020 Onychomycosis 05/24/2016 Pain 05/24/2016 Peripheral neuropathy 05/24/2016 Peripheral vascular disease 05/24/2016 Type 1 diabetes mellitus 05/24/2016 Hyperlipidemia Stage 3a chronic kidney disease Overview (10/05/2021): due to DM Resolved Problems Problem Noted Date Diagnosed Date Resolved Date Renal disorder due to type 1 diabetes mellitus 10/31/2020 03/24/2021 Immunizations Name Administration Dates Next Due Influenza, Quadrivalent, With Preservative 02/19 Pneumococcal, Unspecified 02/27/2016 Family History Medical History Relation Comments Cancer Father Heart disease Father Hypertension Father Heart disease Mother Relation Status Comments Father Mother Alive Social History Tobacco Use Types Packs/Day Years Used Date Smoking Tobacco: Never Smokeless Tobacco: Never Tobacco Cessation:Counseling Given: No Alcohol Use Standard Drinks/Week Comments No 0 (1 standard drink = 0.6 oz pur e alcohol) Comments Unknown Sex and Gender Information Value Date Recorded Sex Assigned at Not on file Legal Sex Female 4:48 PM EST Gender Identity Not on file Sexual Orientation Not on file Last Filed Vital Signs Vital Sign Reading Time Taken Comments Blood Pressure 152/66 04/02/2024 12:56 PM EST Pulse 68 04/02/2024 12:56 PM EST Temperature - - Respiratory Rate - - Oxygen Saturation 94% 07/14/2018 12:00 PM EST Inhaled Oxygen Concentration - - Weight 131 kg (289 lb) 04/02/2024 12:56 PM EST Height 175.3 cm (5' 9 ) 03/24/2021 9:52 AM EDT Body Mass Index 42.68 03/24/2021 9:52 AM EDT Plan of Treatment Upcoming Encounters Date Type Department Care Team (Late st Contact Info) Description 10/29/2024 1:00 PM EDT Office Visit [facility] [address] [place] [address] Sudhakar Castro MD [address] [address] Health Maintenance Due Date Last Done Comments Breast Cancer Screening 1950 Pneumococcal Vaccine: 65+ Ye ars (1 of 2 - PCV) 09/19/1956 02/27/2016 Colorectal Cancer Screening: Annual FOBT 1998 Colorectal Cancer Screening: Colonoscopy 1998 Colorectal Cancer Screening: Sigmoidoscopy 1998 Diabetes: Hemoglobin A1C 06/19/2020 Diabetes: Ophthalmology Exam 06/19/2020 Diabetes: Pedal Pulse Checked 06/19/2020 Diabetes: Sensory Foot Exam 06/19/2020 Diabetes: Visual Foot Exam 06/19/2020 Influenza Vaccine (#1) 2024 02/20/2016 Hepatitis B Vaccine Aged Out No longe r eligible based on patient's age to complete this topic Insurance [facility] MEDICARE [facility] MEDIC[facility] Care Teams Production Machine Shop Supervisor Relationship Specialty Start Date End Date Ravin Moyer MD [address] [place] [address] PCP - General Internal Medicine 07/25/23
--- OUTSIDE RECORDS SUMMARY | 2024-07-29 10:15 | XMS_ITS | Continuity of Care Document ---
Author Organization [facility] [address] [place] [address] Phone [phone] Care Team Providers Care Block Splitter Operator Name Role Phone Ravin Moyer M.D. Care Team Information Recei mihaela [phone] Problems Active Problems Provider Date Type 1 diabetes mellitus Maegan Ramos M.D. 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 05/26/2024 Z96.41 Z79.4 Gvoke Hypopen 2-Jnky3br/0.2ML Solution Auto-Inject use as directed for low blood sugar reactions .6ml Neela Ramos M.D. 04/28/2024 Z96.41 Z79.4 Accu-Chek GuideStrips use and discard 1 test strip 3 times daily 300units Neela Ramos M.D. 03/01/2023 Freestyle Radhika 2/[place]/Flash Glucose Monitoring Ppcdcp5Jqfxsj Device use as directed with sensors dx [place] 1units Maegan Ramos M.D. 08/02/2022 Freestyle Radhika 2/Sensor/Flash Glucose Monitoring Fppytc9Bzdjjr Misc 1 sensor to skin every fourteen days as directed dx e10.21 6units Maegan Ramos M.D. 08/02/2022 Kajwboehcit782rv Tablets 1 qd Unknown Pantoprazole Tqlhlm91oa Tablets DR 1 qd Ivis French, TORCH BURNER Fxlwvxnobw49qw Tablets 1 by mouth every day Unknown Vitamin W381070umw Tablets ER 1 by mouth every day Maegan Ramos M.D. Vitamin W780sgd (2000 Ut) Capsules 1 by mouth every day Maegan Ramos M.D. Aspirin Adult Low Mxjb60ho Tablets DR 1 by mouth every day Maegan Ramos M.D. Eytmnqgxn450ybp Tablets Take 1 Tablet By Mouth Once Daily Except Take 1/2 Tab On Sundays Ravin Moyer M.D. Atorvastatin Bsbqcqb74ae Tablets Take 1 Tablet By Mouth Every Day Ravin Moyer M.D. Aucobwjrcr55hg Tablets Take One Tablet By Mouth Twice Daily Ravin Moyer M.D. Hydrochlorothiazide2 5mg Tablets Take 1/2 tab daily Ravin Moyer M.D. Potassium Citrate DC72Sht (1080 mg) Tablets ER 1 bid Unknown Skdcvypob45ac Tablets Take 1 Tablet By Mouth Every Day Ravin Moyer M.D. History Medications Gvoke Hypopen 1-Srvj6na/0.2ML Solution Auto-Inject use as directed for low blood sugar reactions .200ml Maegan Ramos M.D. 01/10/2024 - 04/28/2024 Tpamu451Hpbz/ML Solution 110 units subcutaneously daily via insulin pump 100ml E10.2 1 Maegan Ramos M.D. 08/01/2023 - 05/26/2024 Vital Signs Date Vital Result Comment 07/13/2024 8:14am BP Systolic 134 mmHg BP Diastolic 68 mmHg Heart Rate 75 /min Height 68.5 inches 5'8.50 Weight 285.00 lb per patient BMI (Body Mass Index) 42.7 kg/m2 Results Test Acquired Date Facility Test Result H/L Range Note Hemoglobin A1c 07/13/2024 Inhouse Hemoglobin A1c 7.2% Glucose Fingerstick 07/13/2024 Inhouse Glucose Fingerstick 148 Glucose Fingerstick 04/15/2024 Inhouse Glucose Fingerstick 141 Hemoglobin A1c 04/15/2024 Inhouse Hemoglobin A1c 7.5% Glucose Fingerstick 01/10/2024 Inhouse Glucose Fingerstick 127 Hemoglobin A1c 01/10/2024 Inhouse Hemoglobin A1c 7.7% Albumin/Creatin ine Ratio, Random Urine 10/11/2023 [facility] Creatinine, Urine 91.8 mg/dL Not Estab. Albumin, Urine 10.2 ug/mL Not Estab. Alb/Creat Ratio 11 mg/gcreat 0-2 9 1 Glucose Fingerstick 10/11/2023 Inhouse Glucose Fingerstick 152 Hemoglobin A1c 10/11/2023 Inhouse Hemoglobin A1c 7.6% TSH reflex to T4F 09/02/2023 [facility] TSH reflex to T4F TNP uIU/mL 2 Request Problem 09/02/2023 [facility] Request Problem TNP 3 Glucose Fingerstick 07/12/2023 Inhouse Glucose Fingerstick 195 Hemoglobin A1c 07/12/2023 Inhouse Hemoglobin A1c 7.3% Glucose Fingerstick 04/25/2023 Inhouse Glucose Fingerstick 205 Glucose Fingerstick 01/07/2023 Inhouse Glucose Fingerstick 214 Hemoglobin A1c 01/07/2023 Inhouse Hemoglobin A1c 7.4% Glucose 11/29/2022 [facility] Glucose Duplicate order <SEE NOTE> 4 C-Peptide 11/29/2022 [facility] C-Peptide <0.1 Low 5 Glucose 11/29/2022 [facility] Glucose 80 mg/dL (70-99) TSH With Reflex To FT4 11/29/2022 [facility] TSH With Reflex To FT4 1.91 uIU/mL (0.4-4.2 ) Glucose Fingerstick 10/12/2022 Inhouse Glucose Fingerstick 189 TSH With Reflex To FT4 07/24/2022 [facility] TSH With Reflex To FT4 <pending> Glucose Fingerstick 07/24/2022 Inhouse Glucose Fingerstick 149 Hemoglobin A1c 07/24/2022 Inhouse Hemoglobin A1c 7.1% Glucose Fingerstick 12/14/2021 Inhouse Glucose Fingerstick 125 Hemoglobin A1c 12/14/2021 Inhouse Hemoglobin A1c 7.5 1 Normal: 0 - 29 Moderately increased: 30 - 300 Severely increased: >300 2 [facility] was unable t o collect sufficient specimen to perform the following test(s), and is providing the patient with re-collection instructions. 3 [facility] was unable t o collect sufficient specimen to perform the following test(s), and is providing the patient with re-collection instructions. TEST: [id number] TSH reflex to T4F 4 Duplicate order canc elled via interface 5 Reference range: 1.1 to 4.4 Unit: ng/mL (NOTE) C-Peptide reference interval is for fasting patients. [facility] [address] [facility] [address] [facility] [address] Procedures Date Code Description Status 07/13/2024 36809 Glucose Monitoring Interpeta tion And Report Completed 04/15/2024 69690 Glucose Monitoring Interpeta tion And Report Completed 01/10/2024 91721 Glucose Monitoring Interpeta tion And Report Completed 10/11/2023 44522 Glucose Monitoring Interpeta tion And Report Completed 07/12/2023 26863 Glucose Monitoring Interpeta tion And Report Completed 04/25/2023 88915 Glucose Monitoring Interpeta tion And Report Completed 03/27/2023 96407 Glucose Monitoring Interpeta tion And Report Completed 01/07/2023 60214 Glucose Monitoring Interpeta tion And Report Completed 10/12/2022 74763 Glucose Monitoring Interpeta tion And Report Completed 07/24/2022 45663 Glucose Monitoring Interpeta tion And Report Completed Medical Devices Description No Information Available Encounters Type Date Location Provider Dx Diagnosis Office Visit 07/13/2024 8:15a Main Office Maegan Ramos M.D. 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 07/13/2024 N18.31 Chronic kidney disease, stag e 3a Maegan Ramos M.D. 07/13/2024 I10 Essential (primary) hyperten jazz Maegan Ramos M.D. 07/13/2024 E03.9 Hypothyroidism, unspecified Maegan Ramos M.D. 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 07/13/2024 Z96.41 Presence of insu sharon pump (external) (internal) Maegan Ramos M.D. 07/13/2024 E66.01 Morbid (severe) obesity due to excess calories Maegan Ramos M.D. 07/13/2024 Z68.41 Body mass index [BMI] 40.0-44.9, adult Maegan Ramos M.D. Plan of Treatment Future Appointment(s):* 01/15/2025 8:15 am - Maegan Ramos M.D. at Main Office * 10/15/2024 8:45 am - Maegan Ramos M.D. [...]
--- OUTSIDE RECORDS SUMMARY | 2024-07-29 10:15 | XMS_ITS | Clinical Summary ---
Author Organization [facility] Address [address] [place] [address] Care Team Providers Care Food Broker Name Role Phone Unavailable Primary Care Provider Unavailabl e Social History Tobacco Use Types Packs/Day Years Used Date Smoking Tobacco: Never Assessed Comments Unknown Sex and Gender Information Value Date Recorded Sex Assigned at Not on file Legal Sex Female 8:17 AM EST Gender Identity Not on file Sexual Orientation Not on file Plan of Treatment Health Maintenance Due Date Last Done Comments DTaP,Tdap,and Td Vaccines (1 - Tdap) 1968 Pneumococcal Vaccine: 50+ Years (1 of 1 - PCV) 09/19/1999 Zoster Vaccines (1 of 2) 09/19/1999 Colorectal Cancer Screening: Colonoscopy 04/22/2022 Depression Screening 04/22/2022 Falls Risk Assessment 04/22/2022 Hepatitis C Screening 04/22/2022 Osteoporosis Screening (Bone Density Screening) 04/22/2022 Social Influencers of Health Screening 04/22/2022 Breast Cancer Screening 07/24/2022 07/25/19 21, 03/23/2019, 03/17/2018 COVID-19 Vaccine ( - 2023-2 5 season) 2024 Influenza Vaccine (#1) 2024 RSV Immunization Patients 60 + Years Old (1 - 1-dose 75+ series) 2024 HIB Vaccines Aged Out No longer eligi ble based on patient's age to complete this topic HPV Vaccines Aged Out No longer eligi ble based on patient's age to complete this topic Hepatitis A Vaccines Aged Out No long er eligible based on patient's age to complete this topic Hepatitis B Vaccines Aged Out No long er eligible based on patient's age to complete this topic IPV Vaccines Aged Out No longer eligi ble based on patient's age to complete this topic MMR Vaccines Aged Out No longer eligi ble based on patient's age to complete this topic Meningococcal ACWY Vaccine Aged Out N o longer eligible based on patient's age to complete this topic Meningococcal B Vacine Aged Out No lo nger eligible based on patient's age to complete this topic RSV Immunization Patients Under 20 months Aged Out No longer eligible b ased on patient's age to complete this topic Varicella Vaccines Aged Out No longer eligible based on patient's age to complete this topic Procedures Procedure Name Priority Date/Time Associated Diagnosis Comments [facility] SCREENING DIGITAL Routine 07/24/2020 9:49 AM EST Encounter for screening mammogram for malignant neoplasm of breast from Last 3 Months or Most Recently Relevant to Health Maintenance Results * [facility] SCREENING DIGITAL (07/24/2020 9:49 AM EST) Anatomical Region Laterality Modality Mammography 07/21/2020 9:40 AM EST Narrative 07/24/2020 9:49 AM EST [facility] Diagnostic Imaging Department [address] [place], [place] [id number] Patient: ??GLADYS GODDARD ?/Age/Sex: 1950 - 69 - F Unit#: ??[id number] ? Location/Status: ??SPDIMAM/REG CLI ? Mnemonic/Ordering Site: ??DIGSC/SPMAM Ordering Physician: ??RAVIN LUCIANO MD Rohit Screening Digital - 07/23/20924 EXAM: [facility] Screening Digital EXAM DATE AND TIME: 07/23/2020 9:26 AM HISTORY: ??Annual screening mammography. ??Remote excisional biopsy right breast, Benign pathology. COMPARISON: ??03/21/2019 through 10/29/2015 TECHNIQUE: CC and MLO views of both breasts were obtained using full field digital mammography. Bilateral digital breast tomosynthesis was performed in the MLO projection. Computer aided detection with the JDF[employer]2-Cylande was employed. TISSUE DENSITY: a. The breasts are almost entirely fatty. FINDINGS: There is a stable area of architectural distortion in the superior lateral right breast. ??There is an increasing number of calcifications with indeterminate morphology in the middle depth of the right breast, 7.3 cm from the nipple, 9 o'clock. ??No dominant mass is present within the right breast. The left breast is stable in appearance with multiple benign calcifications and scattered asymmetric densities without adverse interval change. IMPRESSION: Increased number of calcification at the 9 o'clock position of the right breast, middle depth requiring spot magnification views in the CC and ML orientation. A negative mammogram in the presence of a clinically suspicious palpable abnormality does not preclude the possibility of malignancy or alter the indications for biopsy. BI-RADS: ??Category 0: Incomplete - Need Additional Imaging Evaluation RECOMMENDATION(S): 1: Special mammographic view(s) needed RIGHT as soon as possible 51147, 74574 3340F, 7025F Dictating Physician: ??SILVER MIN MD Electronically Signed by: ??SILVER MIN MD Dic Date/Time: ??07/24/20937 Sign date/Time: ??07/24/20 0949 Procedure Note Prisca Min MD - 05/08/2022 [facility] Diagnostic Imaging Department [address] [place] [address] Patient: GLADYS GODDARD /Age/Sex: 1950 - 69 - F Unit#: [id number] Location/Status: [facility] Mnemonic/Ordering Site: [facility] Ordering Physician: RAVIN LUCIANO MD [facility] Screening Digital - 07/23/20924 EXAM: [facility] Screening Digital EXAM DATE AND TIME: 07/23/2020 9:26 AM HISTORY: Annual screening mammography. Remote excisional biopsy rightbreast, Benign pathology. COMPARISON: 03/21/2019 through 10/29/2015 TECHNIQUE: CC and MLO views of both breasts were obtained using fullfield digital mammography. Bilateral digital breast tomosynthesis was performedin the MLO projection. Computer aided detection with the [employer]as employed. TISSUE DENSITY: a. The breasts are almost entirely fatty. FINDINGS: There is a stable area of architectural distortion in the superiorlateral right breast. There is an increasing number of calcifications with indeterminate morphology in the middle depth of the right breast, 7.3 cmfrom the nipple, 9 o'clock. No dominant mass is present within the rightbreast. The left breast is stable in appearance with multiple benigncalcifications and scattered asymmetric densities without adverse interval change. IMPRESSION: Increased number of calcification at the 9 o'clock position of the right breast, middle depth requiring spot magnification views in the CC and ML orientation. A negative mammogram in the presence of a clinically suspicious palpable abnormality does not preclude the possibility of malignancy or alter the indications for biopsy. BI-RADS: Category 0: Incomplete - Need Additional Imaging Evaluation RECOMMENDATION(S): 1: Special mammographic view(s) needed RIGHT as soon as possible 71681, 74112 3340F, 7025F Dictating Physician: SILVER MIN MD Electronically Signed by: SILVER MIN MD Dic Date/Time: 07/24/20937 Sign date/Time: 07/24/20 0949 Ravin Luciano MD IMG BI PROCEDURES Final Resu lt from Last 3 Months or Most Recently Relevant to Health Maintenance
--- OUTSIDE RECORDS SUMMARY | 2024-07-29 10:15 | XMS_ITS | Encounter Summary ---
Author Organization [facility] Address [address] [facility] [address] [place] [address] Phone Care Team Providers Care Suspect Artist Supervisor Name Role Phone Ravin Moyer MD Primary Care Provider [phone] Reason for Visit * Reason Comments Med Refill Encounter Details Date Type Department Care Team (Late Contact Info) Description 03/25/2023 Refill [facility] [address] [place] [phone] Sudhakar Castro MD [address] [place] [address] Social History Tobacco Use Types Packs/Day Years Used Date Smoking Tobacco: Never Smokeless Tobacco: Never Alcohol Use Standard Drinks/Week Comments No 0 (1 standard drink = 0.6 oz pur e alcohol) Comments Unknown Sex and Gender Information Value Date Recorded Sex Assigned at Not on file Legal Sex Female 4:48 PM EST Gender Identity Not on file Sexual Orientation Not on file documented as of this encounter Plan of Treatment Upcoming Encounters Date Type Department Care Team (Late Contact Info) Description 10/29/2024 1:00 PM EDT Office Visit [facility] [address] [place] [phone] Sudhakar Castro MD [address] [place] [address] documented as of this encounter Visit Diagnoses Not on filedocumented in this encounter Care Teams Suspect Artist Supervisor Relationship Specialty Start Date End Date Ravin Moyer MD [address] [place] [address] PCP - General Internal Medicine 07/25/23 documented as of this encounter
== END 2024-07-29 10:00 | disposition home or self-care (01) ==
LOC: HO.HPS 09:25
PROVIDERS: PCP Internal Medicine; Visit Provider Hospitalist
DX: R05.3 Chronic cough (principal); T78.40XA Allergy, unspecified, initial encounter; J38.00 Paralysis of vocal cords and larynx, unspecified; J30.9 Allergic rhinitis, unspecified; K21.9 Gastro-esophageal reflux disease without esophagitis
CPT/HCPCS: 99214

== ENCOUNTER → 2024-07-29 09:25 | Outpatient (BNVA) | payer MEDICARE, SELFPAY | PROVIDERS: PCP Internal Medicine; Visit Provider Hospitalist | DX: R05.3 Chronic cough (principal); J38.00 Paralysis of vocal cords and larynx, unspecified; J30.9 Allergic rhinitis, unspecified; K21.9 Gastro-esophageal reflux disease without esophagitis; T78.40XD Allergy, unspecified, subsequent encounter | CPT/HCPCS: 99212 ==

== ENCOUNTER 2024-11-26 06:40 | Day surgery (SDC) | payer MEDICARE, SELFPAY ==
--- OUTSIDE RECORDS SUMMARY | 2024-10-08 11:37 | XMS_ITS | Clinical Summary ---
Author Organization [facility] Address [address] [address] Phone Care Team Providers Care Fine Arts Instructor Name Role Phone Ravin Moyer MD Primary Care Provider [phone] Allergies Active Allergy Reactions Criticality Noted Date [...] (one) time each day 90 tablet 3 Active Active Problems Problem Noted Date Diagnosed [...] to type 1 diabetes mellitus 10/31/2020 03/24/2021 Encounters Date Type Department Care Team Description 09/10/2024 Orders Only [facility] [address] [phone] Sudhakar Castro MD Stage 3a chronic kidney disease (HCC); Hypertensive renal disease; Renal disorder due to type 1 diabetes mellitus <Diabetic nephropathy> (HCC); Renal stone from Last 3 Months Immunizations Immunization Administration Dates Next Due Influenza, Quadrivalent, With [...] Office Visit [facility] [address] [place] [address] Sudhakar Castro MD [address] [facility] [address] [place] [address] Health Maintenance Due Date Last Done Comments Breast Cancer Screening 1950 Pneumococcal Vaccine: 50+ Years (1 of 2 - PCV) 969 02/27/2016 Colorectal Cancer Screening: Annual FOBT 1998 Colorectal Cancer Screening: Colonoscopy 1998 Colorectal Cancer Screening: Sigmoidoscopy 1998 Hepatitis B Vaccine (1 of 3 - Risk 3-dose series) 06/2009 Diabetes: Hemoglobin A1C 06/19/2020 Diabetes: Ophthalmology Exam 06/19/2020 Diabetes: Pedal Pulse Checked 06/19/2020 Diabetes: Sensory Foot Exam 06/19/2020 Diabetes: Visual Foot Exam 06/19/2020 Influenza Vaccine (Season Ended) 2025 02/20/20 16 Pneumococcal Vaccine: Peds ( 0 to 5 Years) and At-Risk Patients (6 to 49 Years) Discontinued 02/27/2016 Procedures Procedure Name Priority Date/Time Associated Diagnosis Comments PROTEIN / CREATININE RATIO, URINE Routine 09/30/2024 9:27 AM EDT Stage 3a chronic kidney disease (HCC) Hypertensive renal disease Renal disorder due to type 1 diabetes mellitus <Diabetic nephropathy> (HCC) Renal stone VITAMIN D 25 HYDROXY Routine 09/30/2024 9:27 AM EDT Stage 3a chronic kidney disease (HCC) Hypertensive renal disease Renal disorder due to type 1 diabetes mellitus <Diabetic nephropathy> (HCC) Renal stone RENAL FUNCTION PANEL Routine 09/30/2024 9:27 AM EDT Stage 3a chronic kidney disease (HCC) Hypertensive renal disease Renal disorder due to type 1 diabetes mellitus <Diabetic nephropathy> (HCC) Renal stone PTH, INTACT Routine 09/30/2024 9:27 AM EDT Stage 3a chronic kidney disease (HCC) Hypertensive renal disease Renal disorder due to type 1 diabetes mellitus <Diabetic nephropathy> (HCC) Renal stone from Last 3 Months Results * Urine Protein / creatinine ratio (09/30/2024 9:27 AM EDT) Creatinine, Ur 63.0 Not Estab. mg/dL [facility] Protein, Ur 5.0 Not Estab. mg/dL [facility] Urine Protein/Creatin ine Ratio 79 0 - 200 mg/g creat [facility] Urine specimen (specimen) Urine specimen obtained by clean catch procedure / Unknown 09/30/2024 9:27 AM EDT 09/30/2024 us Sudhakar Castro MD LAB URINE ORDERABLES Final Resu lt [facility] [address] [place] [address] * Vitamin D 25 hydroxy (09/30/2024 9:27 AM EDT) Vitamin D, 25-OH, Total 42.1 30.0 - 100.0 ng/mL [facility] Comment: Vitamin D deficiency has been defined by the Momence of Medicine and an Endocrine Society practice guideline as a level of serum 25-OH vitamin D less than 20 ng/mL (1,2). The Endocrine Society went on to further define vitamin D insufficiency as a level between 21 and 29 ng/mL (2). 1. IOM (Momence of Medicine). 2010. Dietary reference ?? intakes for calcium and D. [place]: The ?? National Academies Press. 2. Vimal MF, Birgit HIDALGO, Miles PADILLA, et al. ?? Evaluation, treatment, and prevention of vitamin D ?? deficiency: an Endocrine Society clinical practice ?? guideline. JCEM. 2010; 96(7):1911-30. Blood specimen (specimen) Venous blood / Unknown 09/30/2024 9:27 AM EDT 09/30/2024 us Sudhakar Castro MD LAB BLOOD ORDERABLES Final Resu lt Performing Organization Address City/[facility]/ZIP Co de Phone Number [facility] [address] [place] [address] * PTH, intact (09/30/2024 9:27 AM EDT) PTH 54 15 - 65 pg/mL [facility] Blood specimen (specimen) Venous blood / Unknown 09/30/2024 9:27 AM EDT 09/30/2024 us Sudhakar Castro MD LAB BLOOD ORDERABLES Final Resu lt Performing Organization Address City/[facility] de Phone Number [facility] [address] [place] [address] * (ABNORMAL) Renal function panel (09/30/2024 9:27 AM EDT) Glucose 104(H) 70 - 99 mg/dL [facility] BUN 29(H) 8 - 27 mg/dL [facility] Creatinine 1.32(H) 0.57 - 1.00 mg/dL [facility] eGFR CKD-EPI CR 2020 42(L) >59 mL/min/1.7 3 [facility] BUN/Creatinine Ratio 22 12 - 28 [facility] Sodium 141 134 - 144 mmol/L [facility] Potassium 4.9 3.5 - 5.2 mmol/L [facility] Chloride 102 96 - 106 mmol/L [facility] Bicarbonate (CO2) 24 20 - 29 mmol/L [facility] Calcium 9.4 8.7 - 10.3 mg/dL [facility] Albumin 4.2 3.8 - 4.8 g/dL [facility] Phosphorus 3.4 3.0 - 4.3 mg/dL [facility] Blood specimen (specimen) Venous blood / Unknown 09/30/2024 9:27 AM EDT 09/30/2024 us Sudhakar Castro MD LAB BLOOD ORDERABLES Final Resu lt [facility] [address] [place] [address] from Last 3 Months Insurance [facility] Medicare [facility] Medicare Care Teams Fine Arts Instructor Relationship Specialty Start Date End Date Ravin Moyer MD [address] [place] [address] PCP - General Internal Medicine 07/25/23
--- OUTSIDE RECORDS SUMMARY | 2024-10-08 11:37 | XMS_ITS | Clinical Summary ---
Author Organization [facility] Address [address] [place] [address] Care Team Providers Care Computer Systems Consultant Name Role Phone Unavailable Primary Care Provider [...] 04/22/2022 Social Influencers of Health Screening 04/22/2022 COVID-19 Vaccine ( - 2023-2 5 season) 2024 RSV Immunization Adult Patients (1 - 1-dose 75+ series) 2024 Influenza Vaccine (Season Ended) 2025 Breast Cancer Screening Discontinued 07/25/19 21, 03/23/2019, 03/17/2018 HIB Vaccines Aged Out No longer eligi [...] age to complete this topic Meningococcal B Vaccine Aged Out No l onger eligible based on patient's age to complete this topic RSV Immunization Patients Under 20 months Aged Out No longer eligible based on patient's age to complete this topic Varicella Vaccines Aged Out No longer eligible based on patient's age to complete this topic Procedures Procedure Name Priority Date/Time Associated Diagnosis Comments [facility] SCREENING DIGITAL Routine 07/24/2020 9:49 AM EST Encounter for screening mammogram for malignant neoplasm of breast from Last 3 Months or Most Recently Relevant to Health Maintenance Results * [facility] SCREENING DIGITAL (07/24/2020 9:49 AM EST) Anatomical Region Laterality Modality Mammography 07/21/2020 9:40 AM EST Narrative 07/24/2020 9:49 AM EST [facility] Diagnostic Imaging Department [address] [place], [place] [id number] Patient: ??BRYSON GODDARDARA Eve ?/Age/Sex: 1950 - 69 - F Unit#: ??[id number] ? Location/Status: ??SPDIMAM/REG CLI ? Mnemonic/Ordering Site: ??DIGSC/SPMAM Ordering Physician: ??RAVIN LUCIANO MD [facility] Screening Digital - 07/23/20924 EXAM: [facility] Screening Digital EXAM DATE AND TIME: 07/23/2020 9:26 AM HISTORY: ??Annual screening mammography. ??Remote excisional biopsy right breast, Benign pathology. COMPARISON: ??03/21/2019 through 10/29/2015 TECHNIQUE: CC and MLO views of both breasts were obtained using full field digital mammography. Bilateral digital breast tomosynthesis was performed in the MLO projection. Computer aided detection with the Gen[employer] 7.2-H was employed. TISSUE DENSITY: a. The breasts [...] view(s) needed RIGHT as soon as possible 70370, 42773 3340F, 7025F Dictating Physician: ??SILVER MIN MD Electronically Signed by: ??SILVER MIN MD Dic Date/Time: ??07/24/2038 Sign date/Time: ??07/24/20 0949 Procedure Note Prisca Min MD - 05/08/2022 [facility] Diagnostic Imaging Department [address] [place] [id number] Patient: GLADYS GODDARDO.B./Age/Sex: 1950 - 69 - F Unit#: [id number] Location/Status: SPDIMAM/REG CLI Mnemonic/Ordering Site: [facility] Ordering Physician: RAVIN LUCIANO MD [facility] Screening Digital - 07/23/20924 EXAM: [facility] Screening Digital EXAM DATE AND TIME: 07/23/2020 9:26 AM HISTORY: Annual screening mammography. Remote excisional biopsy rightbreast, Benign pathology. COMPARISON: 03/21/2019 through 10/29/2015 TECHNIQUE: CC and MLO views of both breasts were obtained using fullfield digital mammography. Bilateral digital breast tomosynthesis was performedin the MLO projection. Computer aided detection with the [employer].2-GazeHawkas employed. TISSUE DENSITY: a. The breasts are [...] view(s) needed RIGHT as soon as possible 30389, 08386 3340F, 7025F Dictating Physician: SILVER MIN MD Electronically Signed by: SILVER MIN MD Dic Date/Time: 07/24/20937 Sign date/Time: 07/24/20948 Ravin Luciano MD IMG BI PROCEDURES Final Resu lt from Last 3 Months or Most Recently Relevant to Health Maintenance
--- OUTSIDE RECORDS SUMMARY | 2024-10-08 11:37 | XMS_ITS | Encounter Summary ---
Author Organization [facility] Address [address] [facility] [address] [place] [address] Phone Care Team Providers Care Gamb Cutter Name Role Phone Ravin Moyer MD Primary Care Provider + [phone] Reason for Visit * Reason Comments Med Refill Encounter Details Date Type Department Care Team (Late Contact Info) Description 03/25/2023 Refill [facility] [address] [place] [id number] Sudhakar Castro MD [address] [facility] [address] [place] [address] Social History Tobacco Use Types [...] Office Visit [facility] [address] [place] [phone] Sudhakar Castro MD [address] [facility] [address] [place] [address] documented as of this encounter Visit Diagnoses Not on filedocumented in this encounter Care Teams Gamb Cutter Relationship Specialty Start Date End Date Ravin Moyer MD [address] [place] [address] PCP - General Internal Medicine 07/25/23 documented as of this encounter
--- OUTSIDE RECORDS SUMMARY | 2024-10-08 11:37 | XMS_ITS | Continuity of Care Document ---
Author Organization [facility] [address] [facility] [address] [place] [address] Phone [phone] Care Team Providers Care Sharepoint Architect Name Role Phone Ravin Moyer M.D. 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 05/26/2024 Z96.41 Z79.4 Gvoke Hypopen 2-Utom3zb/0.2ML Solution Auto-Inject use as directed for low blood sugar reactions .6ml Neela Ramos M.D. 04/28/2024 Z96.41 Z79.4 Accu-Chek GuideStrips use and discard 1 test strip 3 times daily 300units Neela Ramos M.D. 03/01/2023 Freestyle Radhika 2/[place]/Flash Glucose Monitoring Dgfjjs3Sybiwz Device use as directed with sensors dx Ablan 1units Maegan Ramos M.D. 08/02/2022 Freestyle Radhika 2/Sensor/Flash Glucose Monitoring Lxpojg7Gforzk Misc 1 sensor to skin every fourteen days as directed dx e10.21 6units Maegan Ramos M.D. 08/02/2022 Wntauqbqtxd065xu Tablets 1 qd Unknown Pantoprazole Zvullv09rb Tablets DR 1 qd Ivis French, CABLE MAKER Zyervromqp19er Tablets 1 by mouth every day Unknown Vitamin Q307215ntm Tablets ER 1 by mouth every day Maegan Ramos M.D. Vitamin V672luz (2000 Ut) Capsules 1 by mouth every day Maegan Ramos M.D. Aspirin Adult Low Efaw65kd Tablets DR 1 by mouth every day Maegan Ramos M.D. Ofzucekli577ctu Tablets Take 1 Tablet By Mouth Once Daily Except Take 1/2 Tab On Sundays Ravin Moyer M.D. Atorvastatin Ipgfrtk19dx Tablets Take 1 Tablet By Mouth Every Day Ravin Moyer M.D. Bvrkgzreow28ni Tablets Take One Tablet By Mouth Twice Daily Ravin Moyer M.D. Hydrochlorothiazide2 5mg Tablets Take 1/2 tab daily Ravin Moyer M.D. Potassium Citrate WL34Dkw (1080 mg) Tablets ER 1 bid Unknown Gsddejdit51yo Tablets Take 1 Tablet By Mouth Every Day Ravin Moyer M.D. History Medications Gvoke Hypopen 1-Aeef4ok/0.2ML Solution Auto-Inject use as directed for low blood sugar reactions .200ml Maegan Ramos M.D. 01/10/2024 - 04/28/2024 Vital Signs Date Vital Result Comment 07/13/2024 [...] 01/07/2023 Inhouse Hemoglobin A1c 7.4% Glucose 11/29/2022 [facility] Glucose Duplicate order <SEE NOTE> 4 C-Peptide 11/29/2022 [facility] C-Peptide <0.1 Low 5 Glucose 11/29/2022 [facility] Glucose 80 mg/dL (70-99) TSH With Reflex To FT4 11/29/2022 [facility] TSH With Reflex To FT4 1.91 uIU/mL (0.4-4.2 ) Glucose Fingerstick 10/12/2022 Inhouse Glucose Fingerstick 189 TSH With Reflex To FT4 07/24/2022 [facility] TSH With Reflex To FT4 [...] providing the patient with re-collection instructions. TEST: [id number] TSH reflex to T4F 4 Duplicate order canc elled via interface 5 Reference range: 1.1 to 4.4 Unit: ng/mL (NOTE) C-Peptide reference interval is for fasting patients. Test performed by [employer], [address] [place] [address] [place] [address] Procedures Date Code Description Status 07/13/2024 39809 Glucose Monitoring Interpeta tion And Report Completed 04/15/2024 10036 Glucose Monitoring Interpeta tion And Report Completed 01/10/2024 22128 Glucose Monitoring Interpeta tion And Report Completed 10/11/2023 89936 Glucose Monitoring Interpeta tion And Report Completed 07/12/2023 83522 Glucose Monitoring Interpeta tion And Report Completed 04/25/2023 06704 Glucose Monitoring Interpeta tion And Report Completed 03/27/2023 92856 Glucose Monitoring Interpeta tion And Report Completed 01/07/2023 91648 Glucose Monitoring Interpeta tion And Report Completed 10/12/2022 80192 Glucose Monitoring Interpeta tion And Report Completed 07/24/2022 48229 Glucose Monitoring Interpeta tion And Report Completed [...]
--- NOTE | 2024-11-25 09:49 | HO.ANESPROP2 ---
Documented by User: Winter Goddard NP 11/25/24 09:49 HPI - Anesthesia Eval Consult details Narrative: 74yo F for Upper Endoscopy Vocal cord palsy - follows C pulmo - avoid ETT PMFSH Active Problems Active Problems: All Active Problems Hiatal hernia (Acute) GERD (gastroesophageal reflux disease) (Acute) Vocal cord palsy (Acute) Chronic allergic rhinitis (Acute) Allergies (Acute) Chronic cough (Acute) Past Medical History Medical History Bladder cancer Diabetes mellitus Hyperlipidemia HTN (hypertension) Hiatal hernia GERD (gastroesophageal reflux disease) Vocal cord palsy Chronic allergic rhinitis Allergies Chronic cough Surgical History Surgical History History of kidney surgery H/O cystoscopy H/O LEEP Hx of appendectomy Social History Social History Patient Tobacco Use Status: Never used Tobacco Second Hand Smoke Exposure: No Use of substances other than those prescribed or required for medical reasons: No Have you been hit, kicked, punched, or otherwise hurt by someone within the past year? If so, by whom?: No Are you DNR?: No Advance Directives: No Advance Directives Information Provided: Yes Advance Directives on File: No Patient : No : No Poor oral hygiene: No Meds Allergies Allergy/AdvReac Type Severity Reaction Status Date / Time No Known Allergies Allergy Verified 07/29/24 09:35 Home Medications ?Medication ?Instructions ?Recorded ?Confirmed ?Last Taken ?Type allopurinol 100 mg tablet 100 mg PO DAILY 11/07/23 11/26/24 Unknown History aspirin 81 mg tablet,delayed 81 mg PO DAILY 11/07/23 11/26/24 Unknown History release atorvastatin 80 mg tablet 80 mg PO DAILY 11/07/23 11/26/24 Unknown History carvedilol 25 mg tablet 25 mg PO Q12H 11/07/23 11/26/24 11/26/24 History ezetimibe 10 mg tablet 10 mg PO DAILY 11/07/23 11/26/24 11/26/24 History hydrochlorothiazide 12.5 mg tablet 12.5 mg PO DAILY 11/07/23 11/26/24 Unknown History levothyroxine 200 mcg tablet 200 mcg PO DAILY 11/07/23 11/26/24 11/26/24 History (Synthroid) potassium citrate 10 mEq (1,080 10 meq PO TID 11/07/23 11/26/24 Unknown History mg) tablet,extended release insulin aspart (niacinamide) subcut 06/05/24 Unknown History (U-100) 100 unit/mL subcutaneous solution (Fiasp U-100 Insulin) lisinopril 10 mg tablet 20 mg PO DAILY 06/05/24 11/26/24 Unknown History Assessment and Plan Assessment Anesthesia Assessment: Chart Reviewed Documented by User: Keaton Bush MD 11/26/24 07:24 [facility] Past Medical History Medical History Bladder cancer Diabetes mellitus Hyperlipidemia HTN (hypertension) Hiatal hernia GERD (gastroesophageal reflux disease) Vocal cord palsy Chronic allergic rhinitis Allergies Chronic cough Functional capacity: independent ambulation Family History Family history of problems with anesthesia: No Surgical History Surgical History History of kidney surgery H/O cystoscopy H/O LEEP Hx of appendectomy History of Problems with Anesthesia: No Social History Social History Patient Tobacco Use Status: Never used Tobacco Second Hand Smoke Exposure: No Use of substances other than those prescribed or required for medical reasons: No Have you been hit, kicked, punched, or otherwise hurt by someone within the past year? If so, by whom?: No Are you DNR?: No Advance Directives: No Advance Directives Information Provided: Yes Advance Directives on File: No Patient : No : No Poor oral hygiene: No Meds Allergies Allergy/AdvReac Type Severity Reaction Status Date / Time No Known Allergies Allergy Verified 07/29/24 09:35 Home Medications ?Medication ?Instructions ?Recorded ?Confirmed ?Last Taken ?Type allopurinol 100 mg tablet 100 mg PO DAILY 11/07/23 11/26/24 Unknown History aspirin 81 mg tablet,delayed 81 mg PO DAILY 11/07/23 11/26/24 Unknown History release atorvastatin 80 mg tablet 80 mg PO DAILY 11/07/23 11/26/24 Unknown History carvedilol 25 mg tablet 25 mg PO Q12H 11/07/23 11/26/24 11/26/24 History ezetimibe 10 mg tablet 10 mg PO DAILY 11/07/23 11/26/24 11/26/24 History hydrochlorothiazide 12.5 mg tablet 12.5 mg PO DAILY 11/07/23 11/26/24 Unknown History levothyroxine 200 mcg tablet 200 mcg PO DAILY 11/07/23 11/26/24 11/26/24 History (Synthroid) potassium citrate 10 mEq (1,080 10 meq PO TID 11/07/23 11/26/24 Unknown History mg) tablet,extended release insulin aspart (niacinamide) subcut 06/05/24 Unknown History (U-100) 100 unit/mL subcutaneous solution (Fiasp U-100 Insulin) lisinopril 10 mg tablet 20 mg PO DAILY 06/05/24 11/26/24 Unknown History Exam Exam Date and Time: 11/26/2024 Height,Weight and Vital Signs: 9ml4bkylmj. weight 137 Airway Mallampati Class: III TM Dist: >3cm Neck ROM: Full Loose/Missing/Broken Teeth: No Heart: RRR Lungs: CTA Other: normal orientation, normal cognition Assessment and Plan Final Anesthetic Review Family History of Problems with Anesthesia: No History of Problems with Anesthesia: No NPO: Yes ASA Class: IV Final Preanesthetic Review: No Changes in Pt Med Stat, Meds/Allgs Chart Reviewed, Consent Obtained/Reviewed and Anes Risks/Benef Reviewed Patient Risk: High Procedure Risk: Low Anesthetic Plan Anesthetic Plan: MAC: Disposition: Standard PACU
[2024-11-26 06:57] VITALS: BMI 46.0
[2024-11-26 07:07] VITALS: BP 179/71; PULSE 79; RESP 16; TEMP 36.8; O2SAT 94
[2024-11-26] MEDS: Lactated Ringers 1,000 ML 100 ML IVCONT (07:16)
--- NOTE | 2024-11-26 07:48 | MHC.SHP ---
Pre-Procedural Eval Section A - 24 Hr Update-Section A only Date of Service: 11/26/24 Section B - Complete if H&P > 30 days Chief Complaint: Gastro-esophageal reflux disease without esophagit Details of Present Illness: 1. Tiny Zenker's diverticulum. 2. Mild cricopharyngeal achalasia. 3. Mildly patulous esophagus with moderately disorganized peristalsis consistent with esophageal motility. 4. Small type I hiatal hernia with moderate gastroesophageal reflux. 5. Limited evaluation of the gastric mucosa due to poor coating of the stomach. Present Medications: see Short Stay Collaborative assessment Allergies: Allergies Allergy/AdvReac Type Severity Reaction Status Date / Time No Known Allergies Allergy Verified 07/29/24 09:35 Review of Systems Review of Systems Comment: 10 Point ROS negative Exam Exam Comment: Gen appear: No acute distress HEENT: no icterus Chest: No overt resp distress Abd: soft, nontender, nondistended Psych: Stable affect, answering questions appropriately Neuro: A/Ox3 noted to move all extremities spontaneously Ext: no peripheral edema Plan Diagnosis/Plan: Unchanged I have reviewed the history and physical and performed a pertinent physical examination on my patient. No changes have occurred unless specified. Time Spent With Patient Time: Total time managing care of this patient today ____ minutes.
--- NOTE | 2024-11-26 08:15 | P.OP_ITS ---
Operative Note Operative Note Date of Service: 11/26/24 Narrative: Procedure: Esophagogastroduodenoscopy Endoscopist: Any Pardo MD Indication: Cough, abnormal barium swallow Anesthesia Provider: Dr Bush Anesthesia Type: MAC ?? EGD Procedure:?? The procedure, indications, preparation and potential complications were reviewed with the patient, who indicated understanding and gave written informed consent to proceed. A physical exam was performed. The endoscope was introduced through the mouth, and advanced to the second part of duodenum. The mucosa was carefully examined on slow withdrawal of the endoscope. The patient tolerated the procedure well. There were no immediate complications.? ? EGD Findings:? * Esophagus:? Normal mucosa noted in the entire esophagus. No diverticulum was appreciated on exam today. The Z line was at 42 cm and irregular up to 40 cm. Cold forceps biopsies were taken to rule out Cosme's esophagus. This will also be sent for tissue cypher for if Cosme's confirmed. * Stomach:? Erythema and erosion in the antrum. Two small polyps noted in the cardia just below the GE junction. Retroflexion was performed in the cardia. Cold forceps biopsies were taken from the gastric antrum and the polyps. * Duodenum:? Normal mucosa was noted in the whole of the examined duodenum. Additional intervention: Soft tip Savary wire was introduced through the biopsy channel of the gastroscope and advanced to the antrum. ?The gastroscope was then backed out. ?Savary Tamiko bougie was advanced over the guidewire and the esophagus was dilated to 19 with resistance felt. ?On relook, superficial heme noted in proximal esophagus confirming successful dilation. ? EGD Impressions:? * Irregular Z line r/o BE (biopsy, tissue cypher) * Cricopharyngeal narrowing (dilation) * Gastritis (biopsy) * Gastric polyps (biopsy) * Normal duodenum Recommendations:?? * Follow biopsy results. Our office will call or send a letter with results within 7-10 days. * Start PPI therapy. * If H pylori +, patient will be prescribed eradication therapy followed by test of cure. * Avoid NSAIDs. Above has been reviewed with the patient.
[2024-11-26 08:18] VITALS: BP 121/46; PULSE 61; RESP 18; TEMP 36.4; O2SAT 94
[2024-11-26 08:25] VITALS: BP 115/47; PULSE 61; RESP 18; O2SAT 94
[2024-11-26 08:35] VITALS: BP 121/48; PULSE 71; RESP 18; O2SAT 94
== END 2024-11-26 09:30 | disposition home or self-care (01) ==
PROVIDERS: PCP Internal Medicine; Visit Provider Internal Medicine
PROC: 0DJ08ZZ Inspection of Upper Intestinal Tract, Via Natural or Artificial Opening Endoscopic (ICD-10-PCS; CPT 43235; principal; 2024-11-26 07:30)
DX: K29.60 Other gastritis without bleeding (principal); K31.7 Polyp of stomach and duodenum; K22.9 Disease of esophagus, unspecified; J39.2 Other diseases of pharynx; K44.9 Diaphragmatic hernia without obstruction or gangrene; K21.9 Gastro-esophageal reflux disease without esophagitis; E11.9 Type 2 diabetes mellitus without complications; Z79.4 Long term (current) use of insulin; Z96.41 Presence of insulin pump (external) (internal); I10 Essential (primary) hypertension; E78.5 Hyperlipidemia, unspecified; E03.9 Hypothyroidism, unspecified; J38.00 Paralysis of vocal cords and larynx, unspecified; G47.30 Sleep apnea, unspecified; G47.34 Idiopathic sleep related nonobstructive alveolar hypoventilation; R05.3 Chronic cough; Z79.02 Long term (current) use of antithrombotics/antiplatelets; Z79.82 Long term (current) use of aspirin; Z79.899 Other long term (current) drug therapy
CPT/HCPCS: 43248; 43239; 88305; 88313; 88342; C1769; J2003; J2704; J3010

== ENCOUNTER → 2024-11-26 06:40 | Outpatient (BNV) | payer MEDICARE, SELFPAY | PROVIDERS: PCP Internal Medicine; Visit Provider Internal Medicine | DX: K22.89 Other specified disease of esophagus (principal); R13.13 Dysphagia, pharyngeal phase; K29.70 Gastritis, unspecified, without bleeding; K31.7 Polyp of stomach and duodenum | CPT/HCPCS: 43233; 43239 ==

== ENCOUNTER 2024-12-22 13:20 | Outpatient (AMB) | payer MEDICARE, SELFPAY ==
--- NOTE | 2024-12-22 13:25 | A.OFFVIS_ITS ---
Vital Signs 12/22/24 13:26 Height 5 ft 8 in Weight 302 lb BMI 45.9 BP 144/58 H Blood Pressure Location Rt brachial Position Sitting Pulse 70 Pulse Source Pulse Oximeter Pulse Oximetry (%) 96 Oxygen Delivery Method Room Air Intake Visit Reasons: f/u EGD Intake Note: Est pt for mgmt of GERD. S/P EGD. CC; Pt is concerned regarding the concept of dilation and is of the under standing that she was never informed of the potential for this in any pre op appts. [employer] Required: No Accompanied by: Sister Allergies No Known Allergies Allergy (Verified 07/29/24 09:35) HPI HPI f/u EGD: Details: LAST VISIT Hiatal hernia GERD (gastroesophageal reflux disease) Chronic cough Plan As mentioned above in HPI patient had abnormal barium swallow. Patient will be sent for endoscopy. Will start her on pantoprazole. Long discussion about patient's concern for this treatment. Patient will be placed on pantoprazole for about 3 months to try. She will call us if she will have any concerns. Discussed with patient avoiding dietary triggers and late night snacking. Staying upright for minimum 3 hours after meals discussed with patient. Patient reports that her blood sugars have been good. History of sleep apnea, on oxygen at night. Insulin pump with constant monitoring device that communicates and stops or delivers the insulin depending on her levels. Message sent to surgical schedulers to book upper endoscopy for patient. Patient is agreeable to this plan and verbalizes understanding of instructions. She was given the opportunity to ask questions and all questions answered. ? Thank you for allowing me to participate in her care New pantoprazole take one tablet half an hour before breakfast 40 mg PO DAILY 30 tabs 2RF K21.9 UPPER ENDOSCOPY EGD Findings:? * Esophagus:? Normal mucosa noted in the entire esophagus. No diverticulum was appreciated on exam today. The Z line was at 42 cm and irregular up to 40 cm. Cold forceps biopsies were taken to rule out Cosme's esophagus. This will also be sent for tissue cypher for if Cosme's confirmed. * Stomach:? Erythema and erosion in the antrum. Two small polyps noted in the cardia just below the GE junction. Retroflexion was performed in the cardia. Cold forceps biopsies were taken from the gastric antrum and the polyps. * Duodenum:? Normal mucosa was noted in the whole of the examined duodenum. Additional intervention: Soft tip Savary wire was introduced through the biopsy channel of the gastroscope and advanced to the antrum. ?The gastroscope was then backed out. ?Savary Tamiko bougie was advanced over the guidewire and the esophagus was dilated to 19 with resistance felt. ?On relook, superficial heme noted in proximal esophagus confirming successful dilation. ? EGD Impressions:? * Irregular Z line r/o BE (biopsy, tissue cypher) * Cricopharyngeal narrowing (dilation) * Gastritis (biopsy) * Gastric polyps (biopsy) * Normal duodenum Recommendations:?? * Follow biopsy results. Our office will call or send a letter with results within 7-10 days. * Start PPI therapy. * If H pylori +, patient will be prescribed eradication therapy followed by test of cure. * Avoid NSAIDs. PATHOLOGY: Diagnosis A. Stomach, antrum, biopsy: Reactive gastropathy with background mild chronic inactive inflammation; no Helicobacter organisms seen. B. Stomach, polypectomies: Hyperplastic mucosal polyps with background mild chronic inactive inflammation; no Helicobacter organisms seen. C. EG junction, biopsy: - Cardiac-type mucosa with moderate chronic active inflammation and intestinal metaplasia; negative for dysplasia. - No squamous epithelium seen. Comment: The findings in part C are consistent with Cosme esophagus if sampled from the tubular esophagus. TODAY'S VISIT Patient is here today for follow-up and to discuss upper endoscopy results. Diagnosed with Barretts esophagus. Tissue Cypher not available will contact pathology. Patient reports that she continues to have cough. 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 Patient is not seeing any difference in her cough. Patient reports that she has seen ENT in the past as she was diagnosed with vocal cord paralysis. Patient states that her symptoms started after being hospitalized few years ago with severe pneumonia. Patient reports that she was on BiPAP and high-flow O2 for 16 days. Since then she has had this cough. Patient saw Dr. Donahue in pulmonology. Has a follow-up with appointment with him in the near future. Patient reports that she was taking pantoprazole when prescribed during last visit, however patient states that she was told to stop it if it was not working. Patient was placed on omeprazole aft er procedure and is taking daily since. 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 Bladder cancer Diabetes mellitus Hyperlipidemia HTN (hypertension) Hiatal hernia GERD (gastroesophageal reflux disease) Vocal cord palsy Chronic allergic rhinitis Allergies Chronic cough Surgical History History of kidney surgery H/O cystoscopy H/O LEEP Hx of appendectomy Social History Patient Tobacco Use Status: Never used Tobacco Second Hand Smoke Exposure: No Review of Systems Const Denies weight gain and Denies weight loss ENT Reports no additional complaints, Denies dysphagia and Denies odynophagia Card Reports no additional complaints Resp Reports cough (Dry ) GI Denies abdominal pain, Denies belching, Denies melena, Denies bloating, Denies change in bowel habits, Denies dysphagia, Denies excessive flatus, Denies dyspepsia, Denies heartburn, Denies diarrhea, Denies loose stools, Denies nausea, Denies odynophagia and Denies vomiting Reports no additional complaints Musc Reports no additional complaints Neuro Reports no additional complaints Psych Reports no additional complaints Endo Reports no additional complaints Physical Exam Vital Signs: Last Vital Signs Pulse 70 12/22/24 13:26 BP 144/58 H 12/22/24 13:26 Pulse Ox 96 12/22/24 13:26 Oxygen Delivery Method Room Air 12/22/24 13:26 BMI result Body Mass Index 45.9 Const General: healthy appearing and no acute distress Nutritional Appearance: well nourished and obese Resp Effort & Inspection: normal respiratory effort, able to speak in complete sentences, no tracheal deviation and symmetric chest movement Auscultation: clear to auscultation bilaterally Cardio Rate: regular rate GI Inspection: Yes normal to inspection and No distended Palpation (GI): Soft to palpation, not firm, nontender and No hepatosplenomegaly present Auscultation: normal bowel sounds General: Yes no CVA tenderness Back/Spine/Pelvis Back: no CVA tenderness Skin General skin exam: elasticity normal, turgor normal and dry skin Psych Appearance: grossly normal Mental Status: mental status grossly normal Assessment & Plan Assessment & Plan (1) GERD (gastroesophageal reflux disease): Code(s): K21.9 - Gastro-esophageal reflux disease without esophagitis Category: Medical Qualifiers: Esophagitis presence: without esophagitis Qualified Code(s): K21.9 - Gastro-esophageal reflux disease without esophagitis (2) Hiatal hernia: Code(s): K44.9 - Diaphragmatic hernia without obstruction or gangrene Category: Medical (3) 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 Explained to patient that most likely she will have to be for ever. Endoscopy will need to be repeated. Waiting for tissue Cypher to decide when to send patient. Message sent to both Dr. Pardo and the pathologist. Information and educational material on Barretts esophagus given to patient. Discussed with patient avoiding dietary triggers and late night snacking. Staying upright for minimum 3 hours after meals discussed with patient. Discussed with patient also FODMAP diet and the fermentation that happens with food from high FODMAP group. List of food recommended as well as list of food to avoid given to patient. Patient will follow-up with us in 1 year. She was encouraged to call us if her symptoms will get worse. Patient is agreeable to current plan of care and verbalizes understanding of instructions she was given the opportunity to ask questions and all questions answered. 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
[2024-12-22 13:26] VITALS: BP 144/58; PULSE 70; O2SAT 96; BMI 45.9
--- OUTSIDE RECORDS SUMMARY | 2024-12-22 14:00 | XMS_ITS | Patient Health Record ---
Author Organization [facility] Address [address] [place] [address] Care Team Providers Care Dictaphone Typist Name Role Phone Ravin Moyer MD Primary Care Provider Unavail able Corey Mota Unavailable [phone] Allergies Allergen (clinical drug ingredient) Drug/Non Drug Allergy documented on EMR Reaction Allergy Type Onset Date Status Information temporarily unavailable bee stings Unknown Drug Allergy Active Reason For Referral No Information Medications Medication SIG (Take, Route, Frequency, Duration) Notes Start Date End Date Status Naproxen 500 MG TAKE 1 TABLET BY MOUTH 2 TIMES A DAY Oral; Duration: 15 Active Extra-Depth Diabetic Shoes w ith 3 Pair Custom heat-molded multi-density innersoles . 1pair shoes/3sets inserts . .; Duration: 1 year Active Coreg Active Aspirin 81 mg Active Pravastatin Sodium A ctive Moexipril-Hydrochlorothiazide Active Compression Stockings Active Synthroid 175 mcg Ac tive Extra-Depth Diabetic Shoes w ith 3 Pair Custom heat-molded multi-density innersoles . 1pair shoes/3sets inserts . .; Duration: 1 year Active metFORMIN HCl 500 mg Active Insulin Active hydroCHLOROthiazide Active Problems Problem Type SNOMED Code ICD Code Onset Dates Problem Status W/U Status Risk Notes Problem Neurological disorder associated with type I diabetes mellitus (138885214) Diabetic - IDDM/Neuropat hy (250.61) Active confirmed Problem Neurological disorder associated with type I diabetes mellitus (029321502) Diabetic - IDDM/Neuropat hy (250.61) Active confirmed Problem Hammer toe (483089862) Hammer toe (735.4) Active confirmed Problem Plantar fasciitis (272729891) Plantar Fasciitis (728.71) Active confirmed Prob tear Plan Of Treatment Pending Test Test Name Order Date 27925-GIPXBVV NAIL, 6 OR MORE 06/08/2011 52001-CJKEQDQ NAIL, 6 OR MORE 09/04/2011 24435-KAOKSTV NAIL, 6 OR MORE 12/04/2011 95597-CHLBEBC NAIL, 6 OR MORE 03/04/2012 84194-SNWPJSJ NAIL, 6 OR MORE 06/06/2012 52476-UILXETJ NAIL, 6 OR MORE 09/09/2012 84851-RIBCWHH NAIL, 1-5 12/05/2012 37778-TSTEARH NAIL, 1-5 02/27/2013 35559-UABNUNY NAIL, 1-5 06/23/2013 49460-SXXBOZJ NAIL, 1-5 09/22/2013 07759-Dcyq Destruction, 1-14 06/08/2011 78954- Debride <25 sq cm 02/27/2013 35532-UPQK SKIN LESIONS, OVER 4 06/23/19 14 02387-WJCH SKIN LESIONS, OVER 4 02/28/20 13 71603-ZPUZ SKIN LESIONS, OVER 4 09/23/19 14 80118-RRQR SKIN LESIONS, OVER 4 06/08/19 12 61206-XJNL SKIN LESIONS, OVER 4 12/04/19 12 79660-EUME SKIN LESIONS, OVER 4 09/04/19 12 61839-SPFR SKIN LESIONS, OVER 4 09/10/19 13 13823-LOTO SKIN LESIONS, OVER 4 12/06/19 13 29073-VRNB SKIN LESIONS, OVER 4 06/06/19 13 87700-SLKB SKIN LESIONS, OVER 4 03/04/20 12 45153-QFKZ NAIL(S) 12/05/2012 39119-GHXB NAIL(S) 06/23/2013 66260-TFQQ NAIL(S) 02/27/2013 72138-LPGG NAIL(S) 09/22/2013 Insurance Providers Payer Name Payer Address Payer Phone Subscriber Number Group Number Insured Name Patient Relationship to Insured Coverage Start Date Coverage End Date [facility] [address] [place] [address] [id number] Goddard Self - patient is the insured Medical (General) History Medical History History ICD Code mumps measles diabetic chicken pox thyroid disorder neuropathy Surgical History Surgery Date(Month/Year) appendectomy 1957 cataract surgery 2009 lumpectomy tonsillectomy 1954
--- OUTSIDE RECORDS SUMMARY | 2024-12-22 14:00 | XMS_ITS | Encounter Summary ---
Author Organization [facility] Address [address] [facility] [address] [place] [address] Phone Care Team Providers Care Vice President Safety Name Role Phone Ravin Moyer MD Primary Care Provider + [phone] Reason for Visit * Reason Comments Med Refill Encounter Details Date Type Department Care Team (Late Contact Info) Description 03/25/2023 Refill [facility] [address] [place] [phone] Sudhakar Castro MD [address] [facility] [address] [place] [address] Social History Tobacco Use Types [...] Department Care Team (Late Contact Info) Description 10/28/2025 1:15 PM EDT Office Visit [facility] [address] [place] [phone] Sudhakar Castro MD [address] [facility] [address] [place] [address] documented as of this encounter Visit Diagnoses Not on filedocumented in this encounter Care Teams Vice President Safety Relationship Specialty Start Date End Date Ravin Moyer MD [address] [place] [address] PCP - General Internal Medicine 07/25/23 documented as of this encounter
--- OUTSIDE RECORDS SUMMARY | 2024-12-22 14:00 | XMS_ITS | Clinical Summary ---
Author Organization [facility] Address [address] [place] [address] Care Team Providers Care Mail Room Clerk Name Role Phone Unavailable Primary Care Provider [...] 2) 09/19/1999 Colorectal Cancer Screening: Colonoscopy 04/22/2022 Falls Risk Assessment 04/22/2022 Hepatitis C Screening 04/22/2022 Osteoporosis Screening (Bone Density Screening) 04/22/2022 Social Influencers of Health Screening 04/22/2022 COVID-19 Vaccine ( - 2023-2 5 season) 2024 Depression Screening 05/20/2024 RSV Immunization Adult Patients (1 - 1-dose 75+ series) 2024 Influenza Vaccine (#1) 2025 Breast Cancer Screening Discontinued 07/25/19 21, [...] Procedure Name Priority Date/Time Associated Diagnosis Comments [facility] SCREENING DIGITAL Routine 07/24/2020 9:49 AM EST Encounter for screening mammogram for malignant neoplasm of breast from Last 3 Months or Most Recently Relevant to Health Maintenance Results * [facility] SCREENING DIGITAL (07/24/2020 9:49 AM EST) Anatomical Region Laterality Modality Mammography 07/21/2020 9:40 AM EST Narrative 07/24/2020 9:49 AM EST [facility] Diagnostic Imaging Department [address] [place] [address] Patient: GLADYS GODDARD Eve /Age/Sex: 1950 - 69 - F Unit#: [id number] Location/Status: [facility] Mnemonic/Ordering Site: DIGSC/SPMAM Ordering Physician: RAVIN LUCIANO MD [facility] Screening Digital - 07/23/20924 EXAM: [facility] Screening Digital EXAM DATE AND TIME: 07/23/2020 9:26 AM HISTORY: Annual screening mammography. Remote excisional biopsy right breast, Benign pathology. COMPARISON: 03/21/2019 through 10/29/2015 TECHNIQUE: CC and MLO views of both breasts were obtained using full field digital mammography. Bilateral digital breast tomosynthesis was performed in the MLO projection. Computer aided detection with the [employer] 7.2-H was employed. TISSUE DENSITY: a. The breasts are almost entirely fatty. FINDINGS: There is a stable area of architectural distortion in the superior lateral right breast. There is an increasing number of calcifications with indeterminate morphology in the middle depth of the right breast, 7.3 cm from the nipple, 9 o'clock. No dominant mass is present within the right [...] view(s) needed RIGHT as soon as possible 43199, 81720 3340F, 7025F Dictating Physician: SILVER MIN MD Electronically Signed by: SILVER MIN MD Dic Date/Time: 07/24/20937 Sign date/Time: 07/24/20 0949 Procedure Note Prisca Min MD - 05/08/2022 [facility] Diagnostic Imaging Department [address] [place], [place] [id number] Patient: GLADYS GODDARD Eve /Age/Sex: 1950 - 69 - F Unit#: [id number] [facility] Mnemonic/Ordering Site: DIGSC/SPMAM Ordering Physician: RAVIN LUCIANO MD [facility] Screening Digital - 07/23/20924 EXAM: [facility] Screening Digital EXAM DATE AND TIME: 07/23/2020 9:26 AM HISTORY: Annual screening mammography. Remote excisional biopsy rightbreast, Benign pathology. COMPARISON: 03/21/2019 through 10/29/2015 TECHNIQUE: CC and MLO views of both breasts were obtained using fullfield digital mammography. Bilateral digital breast tomosynthesis was performedin the MLO projection. Computer aided detection with the [employer] 7.[employer] employed. TISSUE DENSITY: a. The breasts are [...] view(s) needed RIGHT as soon as possible 57221, 22657 3340F, 7025F Dictating Physician: SILVER MIN MD Electronically Signed by: SILVER MIN MD Dic Date/Time: 07/24/20937 Sign date/Time: 07/24/20948 Ravin Luciano MD IMG BI PROCEDURES Final Resu lt from Last 3 Months or Most Recently Relevant to Health Maintenance
== END 2024-12-22 14:05 | disposition home or self-care (01) ==
LOC: HO.HGI 13:21
PROVIDERS: PCP Internal Medicine; Visit Provider Nurse Practitioner Family
DX: K21.9 Gastro-esophageal reflux disease without esophagitis (principal); K44.9 Diaphragmatic hernia without obstruction or gangrene; K22.70 Barrett's esophagus without dysplasia
CPT/HCPCS: 99214; G2211

== ENCOUNTER → 2024-12-22 13:20 | Outpatient (BNVA) | payer MEDICARE, SELFPAY | PROVIDERS: PCP Internal Medicine; Visit Provider Nurse Practitioner Family | DX: K21.9 Gastro-esophageal reflux disease without esophagitis (principal); K44.9 Diaphragmatic hernia without obstruction or gangrene; K22.70 Barrett's esophagus without dysplasia | CPT/HCPCS: 99212 ==

== ENCOUNTER 2025-03-02 09:45 | Outpatient (AMB) | payer MEDICARE, SELFPAY ==
[2025-03-02 09:48] VITALS: BP 130/60; PULSE 72; O2SAT 99; BMI 46.3
--- NOTE | 2025-03-02 09:48 | MHC.OFFVIS ---
Vital Signs 03/02/25 09:48 Height 5 ft 8 in Weight 304 lb 3.806 oz BMI 46.3 BP 130/60 Blood Pressure Location Lt brachial Position Sitting Pulse 72 Pulse Source Pulse Oximeter Pulse Oximetry (%) 99 Oxygen Delivery Method Room Air Intake Visit Reasons: Cough Accompanied by: Sister Allergies No Known Allergies Allergy (Verified 03/02/25 09:52) HPI Comments Details: The patient is a 74-year-old woman presenting with cough. The cough has been chronic for her. Is been going on for more than several years. Typically nonproductive in nature. Moderate severity. At this point is been concerning to the patient and also her family. 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 She had been evaluated by ENT. They had recommended surgery going or semi-invasive interventions but she opted not to. She denies any choking episodes. In addition to that, the patient did undergo a chest x-ray back in 09/07/2023 which I personally reviewed without any acute disease. She also underwent pulmonary function studies at [facility]. It appears that she did have some saw tooth pattern the expiratory limb of the flow volume loop likely from redundant tissue or fasciculations from the vocal cord issue. At this point will try to further investigate the different etiologies for the cough. She does have multiple potential triggers. She has the vocal cord issue which could result in micro aspirations and pharyngeal laryngeal penetration. In addition to that she is a PET level. She has multiple pets in the house including multiple parakeets. She has had. He is most of her life. The patient also takes blood pressure medications including JOHN inhibitor which may be also contributing to the cough as well. Clinical the patient although she has bothered by the cough does not want to take any medications for. Therefore will do additional testing at this time and then come up with a treatment plan afterwards. If the patient has any worsening symptoms she can not was call and we can prescribe her additional medications. 01/28/2024 the patient is here for a pulmonary follow-up visit. Overall she is doing better. Her cough seems to be better. She still has intermittent coughing but usually nonproductive in no significant. She still continues a an JOHN inhibitor. Although she has been on an JOHN-inhibitor for many years and she has not seen any significant problems with it prior. We did look at her barium swallow. She has a very abnormal study with a small Zenker's diverticulum significant mobility disorder and also a small hiatal hernia with moderate reflux disease. Therefore, explained to her that chronic cough from underlying reflux and non acid reflux could be playing a big role in her. She also is overweight which could also resulting worsening symptoms. The patient also had an overnight oximetry. She had significant hypoxia. Therefore she was started on nocturnal oxygen. The patient does have history of snoring headaches. The patient does benefit from an in-lab sleep study. She will consider it although she is not sure if she can wear CPAP at this time. Therefore I did recommend she continue the oxygen. 07/29/2024 the patient is here for pulmonary follow-up visit. Overall she is doing good. Her cough is better. She still has some dyspnea symptoms and chronic cough. She does have an abnormal barium swallow. She needs the undergo a endoscopy. Is been scheduled but the patient was on sure about the endoscopy with her underlying vocal cord paralysis. I did reassure her that it should not be an issue. As long as the anesthesiologist is aware that is okay to proceed. She should avoid endotracheal intubation then potentially further irritate that vocal cord. We did talk about the reflux diet. She does have some reservations. But we talked about the importance of avoiding too much reflux disease at this time. Therefore she will continue with current therapy. She should be sleeping elevated and will follow-up in the fall. If she has any issues prior to that she will call for an earlier assessment. 03/02/2025 the patient is here for a pulmonary follow-up visit. The patient states that she is doing about the same from the beginning. She does not feel any better. The patient has not been using her oxygen. She does not feel like she had been able to sleep well with it. She also has not been able to tolerate PAP therapy. I did explain to her that significant hypoxia that she had during the study and oxygen will help her overall. The patient is reluctant at this time therefore will go ahead and put a discontinue order in and I did advise her to have a repeat study and she will think about it. We also talked about her significant cough in multifactorial. In part an upper airway cough syndrome in addition to that the fact that she has a vocal cord paralysis and then also significant reflux disease. She did undergo the endoscopy in the did demonstrate Cosme's esophagus and stricture that she had dilation for. She was upset that nobody told her that she potentially would need a dilation study. I do not think that was clearly noted is until she underwent her endoscopy. We talked about the reflux diet. Also the importance of a PPI. To try to minimize them concerns of worsening premalignant lesion. The patient for now will think about switching her JOHN inhibitor to an ARB to try to minimize cough threshold. And also could consider using Bentson John as needed for cough. As she continues her reflux diet. We also did review her blood work demonstrating no significant allergies. Will continue with the current therapy will follow-up in April of 2026 if any issues arise she can always call specially if she wants to repeat overnight oximetry. 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 Bladder cancer Diabetes mellitus Hyperlipidemia HTN (hypertension) Hiatal hernia GERD (gastroesophageal reflux disease) Vocal cord palsy Chronic allergic rhinitis Allergies Chronic cough Surgical History History of kidney surgery H/O cystoscopy H/O LEEP Hx of appendectomy Social History Patient Tobacco Use Status: Never used Tobacco Second Hand Smoke Exposure: No Review of Systems Const Denies headache(s) Eyes Reports no additional complaints ENT Reports change in voice, Denies headache(s), Reports nasal congestion and Reports nasal discharge Card Denies chest pain Resp Denies chest congestion, Reports cough and Denies wheezing GI Reports dyspepsia and Reports heartburn Musc Reports no additional complaints Skin/Breast Denies rash Neuro Denies headache(s) Haile/Lymph Denies lymphadenopathy Aller/Immun Denies wheezing Physical Exam Vital Signs: Last Vital Signs Pulse 72 03/02/25 09:48 BP 130/60 03/02/25 09:48 Pulse Ox 99 03/02/25 09:48 Oxygen Delivery Method Room Air 03/02/25 09:48 BMI result Body Mass Index 46.3 Const General: comfortable HEENT Head: Yes normocephalic Neck Neck: Yes supple Chest Chest palpation & inspection: normal inspection of the chest Resp Effort & Inspection: normal respiratory effort Auscultation: diminished lung sounds Cardio Heart sounds: S1 normal heart sound present and S2 normal heart sound present GI Palpation (GI): Soft to palpation Skin General skin exam: no rashes or lesions noted Extrem General: Yes no clubbing, cyanosis or edema Assessment & Plan Assessment & Plan (1) Chronic cough: Code(s): R05.3 - Chronic cough Category: Medical (2) Allergies: Code(s): T78.40XA - Allergy, unspecified, initial encounter Category: Medical Qualifiers: Encounter type: initial encounter Qualified Code(s): T78.40XA - Allergy, unspecified, initial encounter (3) Vocal cord palsy: Code(s): J38.00 - Paralysis of vocal cords and larynx, unspecified Category: Medical (4) Chronic allergic rhinitis: Code(s): J30.9 - Allergic rhinitis, unspecified Category: Medical (5) GERD (gastroesophageal reflux disease): Code(s): K21.9 - Gastro-esophageal reflux disease without esophagitis Category: Medical Qualifiers: Esophagitis presence: without esophagitis Qualified Code(s): K21.9 - Gastro-esophageal reflux disease without esophagitis Plan Bloodwork/allergy testing normal reflux diet sleep elevated Benzonates as needed Consider JOHN and ARB F/U with GI re: Cosme's F/U 6-8 months Medications: New benzonatate 200 mg PO BID PRN 60 caps 6RF cough 30 days Coding Level of Care Code Est Pt Level 4 (34050) Complex EM visit Add On G2211 Diagnoses Chronic cough R05.3 Allergy, initial encounter T78.40XA Encounter type: initial encounter Vocal cord palsy J38.00 Chronic allergic rhinitis J30.9 Gastroesophageal reflux disease without esophagitis K21.9 Esophagitis presence: without esophagitis Time Spent (min) 18
--- OUTSIDE RECORDS SUMMARY | 2025-03-02 10:55 | XMS_ITS | Clinical Summary ---
Author Organization [facility] Address [address] [address] Phone Care Team Providers Care Genetic Supervisor Name Role Phone Ravin Moyer MD Primary Care Provider [phone] Allergies Active Allergy Reactions Criticality Noted Date [...] split. . 180 tablet 3 3 Active Additional Information Patient not taking.Reported on 10/29/2024 lisinopril 20 MG tablet Take 20 mg [...] type 1 diabetes mellitus 10/31/2020 03/24/2021 Immunizations Immunization Administration Dates Next Due Influenza, [...] Sign Reading Time Taken Comments Blood Pressure 110/52 10/29/2024 1:04 PM EDT Pulse 60 10/29/2024 1:04 PM EDT Temperature - - Respiratory Rate - - Oxygen Saturation 94% 07/14/2018 12:00 PM EST Inhaled Oxygen Concentration - - Weight 127 kg (280 lb) 10/29/2024 1:04 PM EDT Height 175.3 cm (5' 9 ) 03/24/2021 9:52 AM EDT Body Mass Index 41.35 03/24/2021 9:52 AM EDT Plan of Treatment Upcoming Encounters Date Type Department Care Team (Late st Contact Info) Description 10/28/2025 1:15 PM EDT Office Visit [facility] [address] [address] Sudhakar Castro MD [address] [address] Health Maintenance Due Date Last Done Comments [...] Visual Foot Exam 06/19/2020 Influenza Vaccine (#1) 2025 02/20/2016 Pneumococcal Vaccine: Peds ( 0 to 5 Years) and At-Risk Patients (6 to 49 Years) Discontinued 02/27/2016 Insurance [facility] Medicare [facility] Medicare Care Teams Genetic Supervisor Relationship Specialty Start Date End Date Ravin Moyer MD [address] [place] [address] PCP - General Internal Medicine 07/25/23
--- OUTSIDE RECORDS SUMMARY | 2025-03-02 10:55 | XMS_ITS | Encounter Summary ---
Author Organization [facility] Address [address] [facility] [address] [place] [address] Phone Care Team Providers Care Legal Research Analyst Name Role Phone Ravin Moyer MD Primary Care Provider [phone] Reason for Visit * Reason Comments Med Refill Encounter Details Date Type Department Care Team (Late Contact Info) Description 03/25/2023 Refill [facility] [address] [place] [phone] Sudhakar Castro MD [address] [facility] [address] [place] [address] Social History Tobacco Use Types [...] [facility] [address] [place] [phone] Sudhakar Castro MD [address] [facility] [address] [place] [address] documented as of this encounter Visit Diagnoses Not on filedocumented in this encounter Care Teams Legal Research Analyst Relationship Specialty Start Date End Date Ravin Moyer MD [address] [place] [address] PCP - General Internal Medicine 07/25/23 documented as of this encounter
--- OUTSIDE RECORDS SUMMARY | 2025-03-02 10:55 | XMS_ITS | Clinical Summary ---
Author Organization [facility] Address [address] [place] [address] Care Team Providers Care Director Supply Name Role Phone Unavailable Primary Care Provider Unavailabl e Social History Tobacco Use Types Packs/Day Years Used Date Smoking Tobacco: Never Assessed Comments Unknown Sex and Gender Information Value Date Recorded Sex Assigned at Not on file Legal Sex Female 8:17 AM EST Gender Identity Not on file Sexual Orientation Not on file Plan of Treatment Health Maintenance Due Date Last Done Comments Colorectal Cancer Screening: Colonoscopy 1950 DTaP,Tdap,and Td Vaccines (1 - Tdap) 1968 Pneumococcal Vaccine: 50+ Years (1 of 1 - PCV) 09/19/1999 Zoster Vaccines (1 of 2) 09/19/1999 Falls Risk Assessment 04/22/2022 Hepatitis C Screening 04/22/2022 Osteoporosis Screening (Bone Density Screening) 04/22/2022 Social Influencers of Health Screening 04/22/2022 Depression Screening 05/20/2024 RSV Immunization Adult Patients (1 - 1-dose 75+ series) 2024 COVID-19 Vaccine (1 - 2023-2 5 season) 2025 Influenza Vaccine (#1) 2025 Breast Cancer Screening [...] Procedure Name Priority Date/Time Associated Diagnosis Comments [facility] SCREENING DIGITAL Routine 07/24/2020 9:49 AM EST Encounter for screening mammogram for malignant neoplasm of breast from Last 3 Months or Most Recently Relevant to Health Maintenance Results * [facility] SCREENING DIGITAL (07/24/2020 9:49 AM EST) Anatomical Region Laterality Modality Mammography 07/21/2020 9:40 AM EST Narrative 07/24/2020 9:49 AM EST [facility] Diagnostic Imaging Department [address] [place] [address] Patient: GLADYS GODDARD Eve /Age/Sex: 1950 - 69 - F Unit#: [id number] [facility]/Ordering Site: DIGSC/SPMAM Ordering Physician: RAVIN LUCIANO MD [facility] Screening Digital - 07/23/20924 EXAM: [facility] Screening Digital EXAM DATE AND TIME: 07/23/2020 9:26 AM HISTORY: Annual screening mammography. Remote excisional biopsy right breast, Benign pathology. COMPARISON: 03/21/2019 through 10/29/2015 TECHNIQUE: CC and MLO views of both breasts were obtained using full field digital mammography. Bilateral digital breast tomosynthesis was performed in the MLO projection. Computer aided detection with the [employer] 7.2-H was employed. TISSUE DENSITY: a. The [...] view(s) needed RIGHT as soon as possible 60941, 01594 3340F, 7025F Dictating Physician: SILVER MIN MD Electronically Signed by: SILVER MIN MD Dic Date/Time: 07/24/20937 Sign date/Time: 07/24/20 0949 Procedure Note Prisca Min MD - 05/08/2022 [facility] Diagnostic Imaging Department [address] [place], [place] [id number] Patient: GLADYS GODDARD Eve /Age/Sex: 1950 - 69 - F Unit#: [id number] Location/Status: SPDIMAM/REG CLI Mnemonic/Ordering Site: DIGSC/SPMAM Ordering Physician: RAVIN LUCIANO MD [facility] Screening Digital - 07/23/20924 EXAM: [facility] Screening Digital EXAM DATE AND TIME: 07/23/2020 9:26 AM HISTORY: Annual screening mammography. Remote excisional biopsy rightbreast, Benign pathology. COMPARISON: 03/21/2019 through 10/29/2015 TECHNIQUE: CC and MLO views of both breasts were obtained using fullfield digital mammography. Bilateral digital breast tomosynthesis was performedin the MLO projection. Computer aided detection with the [employer] 7.2-fflapas employed. TISSUE DENSITY: a. The breasts are [...] view(s) needed RIGHT as soon as possible 21988, 81630 3340F, 7025F Dictating Physician: SILVER MIN MD Electronically Signed by: SILVER MIN MD Dic Date/Time: 07/24/20937 Sign date/Time: 07/24/20948 Ravin Luciano MD IMG BI PROCEDURES Final Resu lt from Last 3 Months or Most Recently Relevant to Health Maintenance
--- OUTSIDE RECORDS SUMMARY | 2025-03-02 10:56 | XMS_ITS | Patient Health Record ---
Author Organization [facility] Address [address] [place] [address] Care Team Providers Care Validation Manager Name Role Phone Ravin Moyer MD Primary Care Provider Unavail able Corey Dunbar Unavailable [phone] Allergies Allergen (clinical drug ingredient) Drug/Non Drug [...] disorder associated with type I diabetes mellitus (677000926) Diabetic - IDDM/Neuropat hy (250.61) Active confirmed Problem Neurological disorder associated with type I diabetes mellitus (606067399) Diabetic - IDDM/Neuropat hy (250.61) Active confirmed Problem Hammer toe (799681025) Hammer toe (735.4) Active confirmed Problem Plantar fasciitis (675470593) Plantar Fasciitis (728.71) Active confirmed Prob tear Plan Of Treatment Pending Test Test Name Order Date 78713-MDBILVY NAIL, 6 OR MORE 06/08/2011 57440-HSCFIMM NAIL, 6 OR MORE 12/04/2011 52547-SAGXZSH NAIL, 6 OR MORE 03/04/2012 41269-XWDHTED NAIL, 6 OR MORE 06/06/2012 94242-CKNUBFX NAIL, 6 OR MORE 09/09/2012 65173-YVIRAGP NAIL, 6 OR MORE 09/04/2011 12964-YSVOHVK NAIL, 1-5 09/22/2013 52430-MBCIRRT NAIL, 1-5 02/27/2013 36487-ELWRANK NAIL, 1-5 12/05/2012 39002-SHYZXCS NAIL, 1-5 06/23/2013 87888-Fkhx Destruction, 1-14 06/08/2011 19403- Debride <25 sq cm 02/27/2013 98721-VJIU SKIN LESIONS, OVER 4 02/28/20 13 97107-ETDG SKIN LESIONS, OVER 4 06/23/19 14 38613-TOMB SKIN LESIONS, OVER 4 09/23/19 14 41016-KCZQ SKIN LESIONS, OVER 4 09/04/19 12 97242-OBZI SKIN LESIONS, OVER 4 06/08/19 12 72073-QWVU SKIN LESIONS, OVER 4 03/04/20 12 96937-TZCJ SKIN LESIONS, OVER 4 12/04/19 12 24261-VFCL SKIN LESIONS, OVER 4 09/10/19 13 54206-NCFB SKIN LESIONS, OVER 4 12/06/19 13 16531-XBQK SKIN LESIONS, OVER 4 06/06/19 13 66251-DDMW NAIL(S) 06/23/2013 22321-AQEG NAIL(S) 12/05/2012 36948-LOIW NAIL(S) 09/22/2013 57110-NSYE NAIL(S) 02/27/2013 Insurance Providers Payer Name Payer Address Payer Phone Subscriber Number Group Number Insured Name Patient Relationship to Insured Coverage Start Date Coverage End Date [facility] [address] [place] [address] [id number] Goddard Self - patient is the insured Medical (General) History Medical History History ICD Code mumps measles diabetic chicken pox thyroid disorder neuropathy Surgical History Surgery Date(Month/Year) appendectomy 1957 cataract surgery 2009 lumpectomy tonsillectomy 1954
== END 2025-03-02 10:19 | disposition home or self-care (01) ==
LOC: HO.HPS 09:46
PROVIDERS: PCP Internal Medicine; Visit Provider Hospitalist
DX: R05.3 Chronic cough (principal); T78.40XA Allergy, unspecified, initial encounter; J38.00 Paralysis of vocal cords and larynx, unspecified; J30.9 Allergic rhinitis, unspecified; K21.9 Gastro-esophageal reflux disease without esophagitis
CPT/HCPCS: 99214; G2211

== ENCOUNTER → 2025-03-02 09:45 | Outpatient (BNVA) | payer MEDICARE, SELFPAY | PROVIDERS: PCP Internal Medicine; Visit Provider Hospitalist | DX: R05.3 Chronic cough (principal); T78.40XA Allergy, unspecified, initial encounter; J38.00 Paralysis of vocal cords and larynx, unspecified; J30.9 Allergic rhinitis, unspecified; K21.9 Gastro-esophageal reflux disease without esophagitis; Z99.81 Dependence on supplemental oxygen | CPT/HCPCS: 99212 ==